=== PATIENT | male | born 1970 | race American Indian/Alaskan Native ===

== ENCOUNTER 2018-12-25 10:12 | Emergency (ER) | payer SELFPAY ==
--- NOTE | 2018-12-25 10:52 | Emergency Department Report ---
ED N/V/D HPI - General Chief complaint: Abdominal Pain Stated complaint: N/V Time Seen by Provider: 12/25/18 10:39 Source: patient, family Mode of arrival: Ambulatory Limitations: No Limitations - History of Present Illness Initial comments: 47-year-old male presents to ED with complaint of nausea, vomiting, diarrhea since 3 days. Denies abdominal pain. Patient reports he was admitted overnight to [facility] for same last week. Patient reports recurrence of similar symptoms approximately 3 months ago. Patient denies any past medical history. Denies tobacco or ethanol use. Reports daily marijuana use. MD complaint: nausea, vomiting, diarrhea -: days(s) (3) Description of Vomiting: bilious Description of Diarrhea: mucous Associated Abdominal Pain: No Severity: severe Consistency: constant Improves with: other (hot shower) Worsens with: none Associated Symptoms: denies: fever/chills - Related Data Previous Rx's Medication Instructions Recorded Last Taken Type Dicyclomine [Bentyl] 20 mg PO QID PRN #20 tablet 12/25/18 Unknown Rx Promethazine [Phenergan TAB] 25 mg PO Q6HR PRN #20 tab 12/25/18 Unknown Rx Allergies Allergy/AdvReac Type Severity Reaction Status Date / Time heparin AdvReac Unknown Verified 12/25/18 10:38 Latex, Natural Rubber AdvReac Hives Verified 12/25/18 10:38 Penicillins AdvReac Hives Verified 12/25/18 10:38 Sulfa (Sulfonamide AdvReac Hives Verified 12/25/18 10:38 Antibiotics) coumadin AdvReac Bleeding Uncoded 12/25/18 10:38 ED Review of Systems ROS: Stated complaint: N/V Other details as noted in HPI Comment: All other systems reviewed and negative Constitutional: denies: chills, fever Gastrointestinal: nausea, vomiting, diarrhea. denies: abdominal pain ED Past Medical Hx - Past Medical History Previous Medical History?: Yes Hx Deep Vein Thrombosis: Yes Additional medical history: PE hx, chronic lymphodema - Social History Smoking Status: Current Every Day Smoker Substance Use Type: Marijuana - Medications Home Medications: Home Medications Medication Instructions Recorded Confirmed Last Taken Type Dicyclomine [Bentyl] 20 mg PO QID PRN #20 tablet 12/25/18 Unknown Rx Promethazine [Phenergan TAB] 25 mg PO Q6HR PRN #20 tab 12/25/18 Unknown Rx ED Physical Exam - General Limitations: No Limitations General appearance: alert - Head Head exam: Present: atraumatic, normocephalic - Eye Eye exam: Present: normal appearance - ENT ENT exam: Present: mucous membranes moist - Neck Neck exam: Present: normal inspection - Respiratory Respiratory exam: Present: normal lung sounds bilaterally. Absent: respiratory distress - Cardiovascular Cardiovascular Exam: Present: regular rate, normal rhythm - GI/Abdominal GI/Abdominal exam: Present: soft, other (pt is actively vomiting). Absent: distended, tenderness - Extremities Exam Extremities exam: Present: other (lymphedema present) - Neurological Exam Neurological exam: Present: alert, oriented X3 - Psychiatric Psychiatric exam: Present: normal affect, normal mood - Skin Skin exam: Present: warm, dry, intact, normal color. Absent: rash ED Course Vital Signs 12/25/18 12/25/18 12/25/18 10:16 10:38 13:11 Temperature 97.5 F L 97.6 F Pulse Rate 72 82 Respiratory 22 20 18 Rate Blood Pressure 113/90 Blood Pressure 169/90 [Right] O2 Sat by Pulse 98 Oximetry - Reevaluation(s) Reevaluation #1: 12/25/18 12:47 Pt feeling much better at this time. Feels ok for discharge home. No further emesis following haldol and benadryl ED Medical Decision Making - Lab Data Result diagrams: 12/25/18 12:21 12/25/18 11:50 - Medical Decision Making - N/V x 3 days, admitted and discharged from [facility] for same a few days ago - vitals normal - labs normal - pt reports daily marijuana use, likely cannabinoid hyperemesis syndrome, states improvement of sx's w/ hot shower - IM haldol given, symptoms resolved, pt does require admission at this time - spoke w/ pt regarding marijuana cessation - return precautions given - rx given for phenergan, bentyl - Differential Diagnosis dehydration, ARF, hypokalemia, pancreatitis Critical care attestation.: If time is entered above; I have spent that time in minutes in the direct care of this critically ill patient, excluding procedure time. ED Disposition Clinical Impression: Cannabinoid hyperemesis syndrome Disposition: DC-01 TO HOME OR SELFCARE Is pt being admited?: No Condition: Stable Instructions: Acute Nausea and Vomiting (ED) Prescriptions: Dicyclomine [Bentyl] 20 mg PO QID PRN #20 tablet PRN Reason: abdominal pain Promethazine [Phenergan TAB] 25 mg PO Q6HR PRN #20 tab PRN Reason: Nausea Referrals: CONRADO MCGRAW MD [Primary Care Provider] - 3-5 Days Time of Disposition: 12:49
[2018-12-25] MEDS ORDERED: HALDOL IM ONE (10:53)
[2018-12-25] MEDS ORDERED: BENADRYL IV ONE (10:55)
[2018-12-25 12:34] LABS: Albumin 4.3 g/dL (3.9-5); BUN/Creatinine Ratio 14; Blood Urea Nitrogen 13 mg/dL (9-20); Hemolysis Index 170
[2018-12-25 12:38] LABS: Alanine Aminotransferase 24 units/L (7-56)
[2018-12-25 12:39] LABS: Basophils % (Auto) 0.8 % (0.0-1.8); Eosinophils % (Auto) 0.1 % (0.0-4.3); Hematocrit 43.1 % (35.5-45.6); Hemoglobin 14.9 gm/dl (11.8-15.2); Lymphocytes # (Auto) 0.6 K/mm3 (1.2-5.4); Lymphocytes % (Auto) 11.4 % (13.4-35.0); Mean Corpuscular HGB Conc 35 % (32-34); Mean Corpuscular Volume 86 fl (84-94); Monocytes # (Auto) 0.3 K/mm3 (0.0-0.8); Monocytes % (Auto) 4.8 % (0.0-7.3); Platelet Count 209 K/mm3 (140-440); Red Blood Count 5.02 M/mm3 (3.65-5.03); Red Cell Distribution Width 15.1 % (13.2-15.2)
[2018-12-25 13:12] VITALS: BP 169/90
== END 2018-12-25 13:11 | disposition home or self-care (01) ==
LOC: ED 10:12
DX: F12.188 Cannabis abuse with other cannabis-induced disorder (principal); F17.200 Nicotine dependence, unspecified, uncomplicated; Z88.6 Allergy status to analgesic agent; Z88.0 Allergy status to penicillin; Z88.2 Allergy status to sulfonamides; Z91.040 Latex allergy status; Z86.718 Personal history of other venous thrombosis and embolism; Z86.711 Personal history of pulmonary embolism
CPT/HCPCS: 36415; 80053; 83690; 85025; 96372; 96374; 99283; J1200; J1630

== ENCOUNTER 2019-01-25 15:57 | Inpatient (IN) | payer SELFPAY ==
--- NOTE | 2019-01-25 16:30 | Emergency Department Report ---
Blank Doc - Documentation Documentation: This is a 48-year-old male that presents with abdominal pain and n/v. This initial assessment/diagnostic orders/clinical plan/treatment(s) is/are subject to change based on patient's health status, clinical progression and re- assessment by fellow clinical providers in the ED. Further treatment and workup at subsequent clinical providers discretion. Patient/guardians urged not to elope from the ED as their condition may be serious if not clinically assessed and managed. Initial orders include: 1- Patient sent to [facility] for further evaluation and treatment 2- labs
[2019-01-25 19:37] LABS: Basophils # (Auto) 0.1 K/mm3 (0.0-0.1); Basophils % (Auto) 1.2 % (0.0-1.8); Eosinophils % (Auto) 0.8 % (0.0-4.3); Hematocrit 41.9 % (35.5-45.6); Hemoglobin 14.1 gm/dl (11.8-15.2); Lymphocytes # (Auto) 1.5 K/mm3 (1.2-5.4); Lymphocytes % (Auto) 26.7 % (13.4-35.0); Mean Corpuscular HGB Conc 34 % (32-34); Mean Corpuscular Volume 88 fl (84-94); Monocytes # (Auto) 0.3 K/mm3 (0.0-0.8); Monocytes % (Auto) 6.1 % (0.0-7.3); Platelet Count 241 K/mm3 (140-440); Red Blood Count 4.77 M/mm3 (3.65-5.03); Red Cell Distribution Width 14.7 % (13.2-15.2)
[2019-01-25 20:00] LABS: Alanine Aminotransferase 32 units/L (7-56); Albumin 3.9 g/dL (3.9-5); BUN/Creatinine Ratio 11; Blood Urea Nitrogen 11 mg/dL (9-20); Calcium 9.1 mg/dL (8.4-10.2); Hemolysis Index 23
[2019-01-25 20:06] LABS: Bilirubin,Direct < 0.2 mg/dL (0-0.2)
--- NOTE | 2019-01-25 21:19 | Emergency Department Report ---
ED Abdominal Pain HPI - General Chief Complaint: Nausea/Vomiting/Diarrhea Stated Complaint: VOMITING/ABD PAIN/HYPERTENSION Time Seen by Provider: 01/25/19 18:10 Source: patient Mode of arrival: Ambulatory Limitations: No Limitations - History of Present Illness Initial Comments: Patient is a 48-year-old male that presented some unsure what complaints of abdominal pain nausea and vomiting and GI bleed. Patient states his symptoms started 2 days ago except for his abdominal pain which started 4 weeks ago. Patient states she's having bright red blood per rectum. Patient states she was in [place] yesterday and left AMA because he felt like the staff was rude. Patient states he was admitted to the hospitalist service at [place] and the GI specialist is coming to see him for a endoscopy. Patient states he had a CT done and there were all negative. Patient states that the symptoms worsened which is why he came to this hospital. Patient states he's had abdominal pain for 1 month. Patient states his abdominal pain is in the epigastric region. Patient states abdominal pain is worse with eating and vomiting and better with rest. Patient states the abdominal pain as a 10 out of 10. Patient is complaining of nausea and vomiting which is intermittent. Patient states that the blood in his stool is worsening. Patient states he is supposed to be on blood thinners for a DVT and a PE but is not taking them. Patient states not taking any medications due to he can't afford them. Patient states he was on Lovenox shots. Patient states it's been many months since he is taking any of his medications. She denies chest pain. Patient denies shortness of breath. Patient denies fever and chills. MD Complaint: abdominal pain -: Sudden Location: epigastric Radiation: none Migration to: no migration Severity: severe Severity scale (0 -10): 10 Quality: cramping, stabbing Consistency: constant Improves With: rest Worsens With: eating, vomiting, movement Associated Symptoms: nausea, vomiting, diarrhea, hematochezia. denies: fever, chills, constipation, dysuria, hematemesis, melena, hematuria, anorexia, syncope - Related Data Previous Rx's Medication Instructions Recorded Last Taken Type Dicyclomine [Bentyl] 20 mg PO QID PRN #20 tablet 12/25/18 Unknown Rx Promethazine [Phenergan TAB] 25 mg PO Q6HR PRN #20 tab 12/25/18 Unknown Rx Allergies Allergy/AdvReac Type Severity Reaction Status Date / Time heparin AdvReac Unknown Verified 12/25/18 10:38 Latex, Natural Rubber AdvReac Hives Verified 12/25/18 10:38 Penicillins AdvReac Hives Verified 12/25/18 10:38 Sulfa (Sulfonamide AdvReac Hives Verified 12/25/18 10:38 Antibiotics) coumadin AdvReac Bleeding Uncoded 12/25/18 10:38 ED Review of Systems ROS: Stated complaint: VOMITING/ABD PAIN/HYPERTENSION Other details as noted in HPI Constitutional: denies: chills, fever Eyes: denies: eye pain, eye discharge, vision change ENT: denies: ear pain, throat pain Respiratory: denies: cough, shortness of breath, wheezing Cardiovascular: denies: chest pain, palpitations Endocrine: no symptoms reported Gastrointestinal: abdominal pain, nausea, vomiting, diarrhea, hematochezia Genitourinary: denies: urgency, dysuria Musculoskeletal: denies: back pain, joint swelling, arthralgia Skin: denies: rash, lesions Neurological: denies: headache, weakness, paresthesias Psychiatric: denies: anxiety, depression Hematological/Lymphatic: denies: easy bleeding, easy bruising ED Past Medical Hx - Past Medical History Previous Medical History?: Yes Hx Hypertension: Yes Hx Deep Vein Thrombosis: Yes Hx Pulmonary Embolism: Yes Additional medical history: DVT/PE hx, chronic lymphodema - Surgical History Past Surgical History?: Yes Additional Surgical History: IVC filter - Family History Family history: no significant - Social History Smoking Status: Never Smoker Substance Use Type: Alcohol - Medications Home Medications: Home Medications Medication Instructions Recorded Confirmed Last Taken Type Dicyclomine [Bentyl] 20 mg PO QID PRN #20 tablet 12/25/18 Unknown Rx Promethazine [Phenergan TAB] 25 mg PO Q6HR PRN #20 tab 12/25/18 Unknown Rx ED Physical Exam - General Limitations: No Limitations General appearance: alert, in no apparent distress - Head Head exam: Present: atraumatic, normocephalic - Eye Eye exam: Present: normal appearance - ENT ENT exam: Present: mucous membranes moist - Neck Neck exam: Present: normal inspection - Respiratory Respiratory exam: Present: normal lung sounds bilaterally. Absent: respiratory distress - Cardiovascular Cardiovascular Exam: Present: regular rate, normal rhythm. Absent: systolic murmur, diastolic murmur, rubs, gallop - GI/Abdominal GI/Abdominal exam: Present: soft, tenderness (generalized tenderness), normal bowel sounds. Absent: distended - Rectal Rectal exam: Present: normal rectal tone, heme (+) stool, bloody stool, hemorrhoids - Extremities Exam Extremities exam: Present: normal inspection - Back Exam Back exam: Present: normal inspection - Neurological Exam Neurological exam: Present: alert, oriented X3 - Psychiatric Psychiatric exam: Present: normal affect, normal mood - Skin Skin exam: Present: warm, dry, intact, normal color. Absent: rash ED Course Vital Signs 01/25/19 01/25/19 01/25/19 16:29 21:56 22:00 Temperature 97.7 F Pulse Rate 78 Respiratory 18 Rate Blood Pressure 160/92 154/95 152/89 01/25/19 01/26/19 23:00 00:31 Temperature Pulse Rate Respiratory Rate Blood Pressure 146/89 142/85 - Reevaluation(s) Reevaluation #1: Discussed all results with patient. Patient is complaining of nausea and abdominal pain again. Patient will be given another round of Zofran and Dilaudid. Discussed plan of care with patient. Patient agrees with plan of care and admission. Patient will be admitted to the hospitalist service. 01/26/19 01:13 - Consultations Consultation #1: Discussed case with GI, Dr. Chow. GI recommends admission and will scope him in the morning. Patient will be nothing by mouth after midnight 01/25/19 23:21 Consultation #2: Hospitalist consulted for admission. Hospitalist to admit patient. Hospitalist to assume care patient. Dr. Banegas to see patient 01/26/19 01:14 ED Medical Decision Making - Lab Data Result diagrams: 01/25/19 19:25 01/25/19 19:25 - Radiology Data Radiology results: report reviewed PROCEDURE: CT abdomen and pelvis without contrast. TECHNIQUE: Computerized axial tomography of the abdomen and pelvis was performed without intravenous contrast. This study is performed without intravascular contrast material and its sensitivity for abdominal and pelvic pathology, including neoplasms, inflammation, abscess, free fluid, thrombosis, arterial dissection and infarction, is reduced compared with a contrast enhanced study. CT DOSE LENGTH PRODUCT: 1019.3 mGycm HISTORY: Abdominal pain. COMPARISONS: None. FINDINGS: The lung bases are clear. There are no pleural effusions. The heart size is normal. The liver, pancreas and spleen are grossly normal. The gallbladder is present. There is no biliary dilatation. The adrenal glands are not enlarged. Both kidneys appear normal in size and configuration. The abdominal aorta has a normal caliber. There is an IVC filter in place. There is no retroperitoneal adenopathy. The gastrointestinal tract is unremarkable. A normal appendix is visible. The bladder, seminal vesicles and prostate appear normal. The regional skeleton appears intact. 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 IMPRESSION: IVC filter in place. 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 No evidence of acute disease in the abdomen or pelvis. - Medical Decision Making Patient is a 48-year-old male that presents emergency room with complaints of nausea vomiting diarrhea 2 days and worsening abdominal pain has been going on for a month. Patient was admitted to the hospitalist service. Patient has CT which is negative. GI consulted for rectal bleeding. Due to the patient's complex past medical history GI recommends admission to the hospitalist service and a scope in the morning. Patient nothing by mouth after midnight. Patient g iven pain medications and nausea medication. Patient's labs unremarkable. No anemia noted. Guaiac was positive - Differential Diagnosis abdominal pain.n/v/d. Rectal bleed Critical Care Time: Yes Critical care attestation.: If time is entered above; I have spent that time in minutes in the direct care of this critically ill patient, excluding procedure time. Critical Care Time: 35 minutes ED Disposition Clinical Impression: Rectal bleeding, Noncompliance Abdominal pain Qualifiers: Abdominal location: epigastric Qualified Code(s): R10.13 - Epigastric pain Disposition: OP ADMIT IP TO THIS HOSP Is pt being admited?: Yes Does the pt Need Aspirin: No Condition: Critical Referrals: CONRADO MCGRAW MD [Primary Care Provider] - 3-5 Days Time of Disposition: 01:16
[2019-01-25 22:09] LABS: Bacteria,Urine 1+ /HPF (Negative); Bilirubin,Urine NEG (Negative); Blood,Urine NEG (Negative); Color,Urine Amber (Yellow); Mucus,Urine 2+ /HPF
[2019-01-25] MEDS ORDERED: DILAUDID IV ONE (22:19)
[2019-01-25] MEDS ORDERED: ZOFRAN IV ONE (22:20)
--- NOTE | 2019-01-26 00:17 | Cat Scan Report ---
PROCEDURE: CT abdomen and pelvis without contrast. TECHNIQUE: Computerized axial tomography of the abdomen and pelvis was performed without intravenous contrast. This study is performed without intravascular contrast material and its sensitivity for ab dominal and pelvic pathology, including neoplasms, inflammation, abscess, free fluid, thrombosis, art erial dissection and infarction, is reduced compared with a contrast enhanced study. CT DOSE LENGTH PRODUCT: 1019.3 mGycm HISTORY: Abdominal pain. COMPARISONS: None. FINDINGS: The lung bases are clear. There are no pleural effusions. The heart size is normal. The liver, pancre as and spleen are grossly normal. The gallbladder is present. There is no biliary dilatation. The adr enal glands are not enlarged. Both kidneys appear normal in size and configuration. The abdominal aor ta has a normal caliber. There is an IVC filter in place. There is no retroperitoneal adenopathy. The gastrointestinal tract is unremarkable. A normal appendix is visible. The bladder, seminal vesicles and prostate appear normal. The regional skeleton appears intact. There is osteoarthritis involving t he facet joints in the lower lumbar spine. IMPRESSION: IVC filter in place. 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 No evidence of acu te disease in the abdomen or pelvis. This document is electronically signed by Wilfrido Valdez MD., Jan 26 2019 12:15:43 AM ET
[2019-01-26] MEDS ORDERED: NACL 0.9% 1000 ML 1,000 ML IV ONE (01:15)
[2019-01-26] MEDS ORDERED: DILAUDID IV ONE (01:15)
[2019-01-26] MEDS ORDERED: ZOFRAN IV ONE (01:15)
[2019-01-26] MEDS ORDERED: TYLENOL PO PRN (02:42)
[2019-01-26] MEDS ORDERED: SODIUM CHLORIDE FLUSH SYRINGE 10 ML IV PRN (02:42)
[2019-01-26] MEDS ORDERED: NACL 0.9% 1000 ML 1,000 ML IV SCH (03:00)
[2019-01-26] MEDS: NS/KCL 20MEQ 20 MEQ/1,000 ML BAG IV SCH ×2 (03:48→23:20)
[2019-01-26] MEDS: MORPHINE IV PRN ×4 (03:52→23:29)
[2019-01-26 04:03] LABS: Hematocrit 41.6 % (35.5-45.6); Hemoglobin 13.7 gm/dl (11.8-15.2)
--- NOTE | 2019-01-26 04:33 | History and Physical Report ---
History of Present Illness Date of examination: 01/26/19 Date of admission: 01/26/19 02:42 Chief complaint: Upper abdominal pain History of present illness: Patient is a 48-year-old -[place] male with history of DVTs/PEs and lymphedema who presented to the ED on account of 4 weeks history of upper abdominal pain. He described it as sharp in character, rated 8/10, constant in duration and radiating to the flank. Pain is worse with food and no known reli eving factors. He has associated nausea with vomiting, passage of dark tarry stool, headaches, shortness of breath, palpitation and lightheadedness. He denied chest pain, fever, chills, sore throat, runny nose/congestion, orthopnea or PND. No syncope or loss of consciousness. No dysuria or frequency. Of note, patient stated that he has not taken his Lovenox for about 2-3 weeks because he could not afford it. Past History Past Medical History: hypertension, pulmonary embolism (and DVTs), other (lymphedema, hemorrhoid) Past Surgical History: Other (IVC filter placement, hemorrhoidectomy, facial surgeries) Social history: smoking (patient has been smoking cigarettes and using marijuana for 30 years. He admits to occasional alcohol use but denies other illicit drug use) Family history: other (significant for clots and lymphedema in multiple family members) Medications and Allergies Allergies Allergy/AdvReac Type Severity Reaction Status Date / Time heparin AdvReac Unknown Verified 12/25/18 10:38 Latex, Natural Rubber AdvReac Hives Verified 12/25/18 10:38 Penicillins AdvReac Hives Verified 12/25/18 10:38 Sulfa (Sulfonamide AdvReac Hives Verified 12/25/18 10:38 Antibiotics) coumadin AdvReac Bleeding Uncoded 12/25/18 10:38 Home Medications Medication Instructions Recorded Confirmed Last Taken Type Dicyclomine [Bentyl] 20 mg PO QID PRN #20 tablet 12/25/18 Unknown Rx Promethazine [Phenergan TAB] 25 mg PO Q6HR PRN #20 tab 12/25/18 Unknown Rx Active Meds: Active Medications Acetaminophen (Tylenol) 650 mg PO Q4H PRN PRN Reason: Pain MILD(1-3)/Fever >100.5/CARLIN Potassium Chloride/Sodium Chloride (Ns/Kcl 20meq) 20 meq in 1,000 mls @ 75 mls/hr IV DIRECT DEE Stop: 01/27/19 02:59 Last Admin: 01/26/19 03:48 Dose: 75 mls/hr Documented by: Morphine Sulfate (Morphine) 2 mg IV Q4H PRN PRN Reason: Pain, Moderate (4-6) Last Admin: 01/26/19 03:52 Dose: 2 mg Documented by: Ondansetron HCl (Zofran) 4 mg IV Q8H PRN PRN Reason: Nausea And Vomiting Pantoprazole Sodium (Protonix) 40 mg IV QDAY DEE Sodium Chloride (Sodium Chloride Flush Syringe 10 Ml) 10 ml IV BID DEE Sodium Chloride (Sodium Chloride Flush Syringe 10 Ml) 10 ml IV PRN PRN PRN Reason: LINE FLUSH Review of Systems All systems: negative (except as documented in the HPI, all other systems were reviewed and negative) Exam - Constitutional Vitals: Temp Pulse Resp BP Pulse Ox 97.7 F 57 L 13 154/96 97 01/25/19 16:29 01/26/19 04:01 01/26/19 04:01 01/26/19 04:01 01/26/19 04:01 General appearance: Present: no acute distress, well-nourished - EENT Eyes: Present: PERRL, EOM intact ENT: hearing intact, clear oral mucosa - Neck Neck: Present: supple, normal ROM - Respiratory Respiratory effort: normal Respiratory: bilateral: CTA - Cardiovascular Rhythm: regular Heart Sounds: Present: S1 & S2. Absent: rub, click - Extremities Extremities: No edema Peripheral Pulses: within normal limits - Abdominal General gastrointestinal: Present: soft, tender (epigastric), non-distended, normal bowel sounds Male genitourinary: Present: deferred - Integumentary Integumentary: Present: clear, warm, dry - Musculoskeletal Musculoskeletal: gait normal, strength equal bilaterally - Psychiatric Psychiatric: appropriate mood/affect, intact judgment & insight - Neurologic Neurologic: CNII-XII intact, moves all extremities Results - Labs CBC & Chem 7: 01/26/19 03:30 01/25/19 19:25 Labs: Laboratory Last Values WBC 5.6 K/mm3 (4.5-11.0) 01/25/19 19:25 RBC 4.77 M/mm3 (3.65-5.03) 01/25/19 19:25 Hgb 13.7 gm/dl (11.8-15.2) 01/26/19 03:30 Hct 41.6 % (35.5-45.6) 01/26/19 03:30 MCV 88 fl (84-94) 01/25/19 19:25 MCH 30 pg (28-32) 01/25/19 19:25 MCHC 34 % (32-34) 01/25/19 19:25 RDW 14.7 % (13.2-15.2) 01/25/19 19:25 Plt Count 241 K/mm3 (140-440) 01/25/19 19:25 Lymph % (Auto) 26.7 % (13.4-35.0) 01/25/19:25 [place] % (Auto) 6.1 % (0.0-7.3) 01/25/19 19:25 Eos % (Auto) 0.8 % (0.0-4.3) 01/25/19 19:25 Baso % (Auto) 1.2 % (0.0-1.8) 01/25/19 19:25 Lymph # 1.5 K/mm3 (1.2-5.4) 01/25/19:25 [place] # 0.3 K/mm3 (0.0-0.8) 01/25/19 19:25 Eos # 0.0 K/mm3 (0.0-0.4) 01/25/19 19:25 Baso # 0.1 K/mm3 (0.0-0.1) 01/25/19 19:25 Seg Neutrophils % 65.2 % (40.0-70.0) 01/25/19 19: Seg Neutrophils # 3.7 K/mm3 (1.8-7.7) 01/25/19 19:25 Sodium 139 mmol/L (137-145) 01/25/19 19:25 Potassium 3.6 mmol/L (3.6-5.0) 01/25/19 19:25 Chloride 102.9 mmol/L (98-107) 01/25/19 19:25 Carbon Dioxide 23 mmol/L (22-30) 01/25/19 19:25 Anion Gap 17 mmol/L 01/25/19 19:25 BUN 11 mg/dL (9-20) 01/25/19 19:25 Creatinine 1.0 mg/dL (0.8-1.5) 01/25/19 19:25 Estimated GFR > 60 ml/min 01/25/19 19:25 BUN/Creatinine Ratio 11 % 01/25/19 19:25 Glucose 92 mg/dL (75-100) 01/25/19 19:25 Calcium 9.1 mg/dL (8.4-10.2) 01/25/19 19:25 Total Bilirubin 0.60 mg/dL (0.1-1.2) 01/25/19 19:25 Direct Bilirubin < 0.2 mg/dL (0-0.2) 01/25/19 19:25 AST 21 units/L (5-40) 01/25/19 19:25 ALT 32 units/L (7-56) 01/25/19 19:25 Alkaline Phosphatase 145 units/L (35-129) H 01/25/19 19:25 Total Protein 7.2 g/dL (6.3-8.2) 01/25/19 19:25 Albumin 3.9 g/dL (3.9-5) 01/25/19 19:25 Albumin/Globulin Ratio 1.2 % 01/25/19 19:25 Lipase 44 units/L (13-60) 01/25/19 23:28 Urine Color [place] (Yellow) 01/25/19 21:50 Urine Turbidity Slightly-cloudy (Clear) 01/25/19 21:50 Urine pH 5.0 (5.0-7.0) 01/25/19 21:50 Ur Specific [place] 1.030 (1.003-1.030) 01/25/19 21:50 Urine Protein 30 mg/dl mg/dL (Negative) 01/25/19 21:50 Urine Glucose (UA) Neg mg/dL (Negative) 01/25/19 21:50 Urine Ketones Neg mg/dL (Negative) 01/25/19 21:50 Urine Blood Neg (Negative) 01/25/19 21:50 Urine Nitrite Neg (Negative) 01/25/19 21:50 Urine Bilirubin Neg (Negative) 01/25/19 21:50 Urine Urobilinogen 4.0 mg/dL (<2.0) 01/25/19 21:50 Ur Leukocyte Esterase Neg (Negative) 01/25/19 21:50 Urine WBC (Auto) 3.0 /HPF (0.0-6.0) 01/25/19 21:50 Urine RBC (Auto) 7.0 /HPF (0.0-6.0) 01/25/19 21:50 U Epithel Cells (Auto) 1.0 /HPF (0-13.0) 01/25/19 21:50 Urine Bacteria (Auto) 1+ /HPF (Negative) 01/25/19 21:50 Urine Mucus 2+ /HPF 01/25/19 21:50 Assessment and Plan Assessment and plan: Rectal bleed -On IV Protonix -H/H stable, will monitor and transfuse as needed -Patient scheduled for EGD today -GI consulted Epigastric abdominal pain -On when necessary narcotics -CT abdomen/pelvis negative for acute findings -Further investigative testing with EGD History of DVTs/PEs -Status post IVC filter placement -Patient is currently on only Lovenox because he is unable to tolerate other anticoagulations -We'll hold due to acute bleed Hypertension -Stable, will resume home antihypertensives History of lymphedema Tobacco and marijuana abuse -Patient counseled on cessation DVT prophylaxis with [facility] Disposition: For discharge when medically stable Time spent: 38 minutes
[2019-01-26] MEDS: ZOFRAN IV PRN ×2 (06:56→19:25)
[2019-01-26] MEDS: PROTONIX IV SCH (09:23)
[2019-01-26] MEDS: SODIUM CHLORIDE FLUSH SYRINGE 10 ML IV SCH ×2 (09:23→22:00)
[2019-01-26 09:58] LABS: Hemoglobin 13.6 gm/dl (11.8-15.2)
[2019-01-26] MEDS ORDERED: PROTONIX IV SCH (10:00)
--- NOTE | 2019-01-26 10:51 | Gastroenterology Consultation ---
<VICTORINO LEOS - Last Filed: 01/26/19 11:04> History of Present Illness - Reason for Consult Consult date: 01/26/19 GI bleed Requesting physician: ISAIAH RODRIGUEZ III - History of Present Illness Patient is a 48 y/o male with PMH of DVTs/PEs (s/p IVC filter placement; non- compliant with taking lovenox due to cost), lymephedema, hemorrhoids (s/p hemorrhoidectomy), and substance abuse (tobacco/marijuana) who presented to ED for evaluation of epigastric abd pain, N/V, and bright red blood per rectum after leaving [facility] because he felt like the staff was rude. upon admission, abd CT was negative for acute findings. H/H WNL. This morning patient was resting in bed w/o acute distress (on his cell phone with family at bedside). He reports having indigestion/belching x 3 months and epigastric pain with intermittent N/V x 1 month. Pain does not radiate. Symptoms are exacerbated with eating and alcohol consumption. Admits to recent associated wt loss due to current symptoms but denies fever, CP, SOB, hematemesis, melena, diarrhea, or constipation. States he saw bright red blood mixed with brown stool and in toilet 2 days ago after a BM but no active signs of bleeding since that time. He has had occasional rectal bleeding since hemorrhoidectomy (~2014). No known colonoscopy or prior EGD per pt. No NSAID use (was previously on daily ASA while in nursing home but stopped taking last year upon release) or hx of PUD. No Fhx of GI cancers. Past History Past Medical History: other (as per HPI) Past Surgical History: Other (IVC filter placement, hemorrhoidectomy, facial surgeries) Social history: smoking (patient has been smoking cigarettes and using marijuana for 30 years. He admits to occasional alcohol use but denies other illicit drug use) Family history: other (significant for clots and lymphedema in multiple family members) Medications and Allergies Allergies Allergy/AdvReac Type Severity Reaction Status Date / Time heparin AdvReac Unknown Verified 12/25/18 10:38 Latex, Natural Rubber AdvReac Hives Verified 12/25/18 10:38 Penicillins AdvReac Hives Verified 12/25/18 10:38 Sulfa (Sulfonamide AdvReac Hives Verified 12/25/18 10:38 Antibiotics) coumadin AdvReac Bleeding Uncoded 12/25/18 10:38 Home Medications Medication Instructions Recorded Confirmed Last Taken Type Dicyclomine [Bentyl] 20 mg PO QID PRN #20 tablet 12/25/18 Unknown Rx Promethazine [Phenergan TAB] 25 mg PO Q6HR PRN #20 tab 12/25/18 Unknown Rx Active Meds: Active Medications Acetaminophen (Tylenol) 650 mg PO Q4H PRN PRN Reason: Pain MILD(1-3)/Fever >100.5/CARLIN Potassium Chloride/Sodium Chloride (Ns/Kcl 20meq) 20 meq in 1,000 mls @ 75 mls/hr IV DIRECT FOR[facility], [facility]1983 Stop: 01/27/19 02:59 Last Admin: 01/26/19 03:48 Dose: 75 mls/hr Documented by: Morphine Sulfate (Morphine) 2 mg IV Q4H PRN PRN Reason: Pain, Moderate (4-6) Last Admin: 01/26/19 07:48 Dose: 2 mg Documented by: Ondansetron HCl (Zofran) 4 mg IV Q8H PRN PRN Reason: Nausea And Vomiting Last Admin: 01/26/19 06:56 Dose: 4 mg Documented by: Pantoprazole Sodium (Protonix) 40 mg IV QDAY [facility], [facility] Last Admin: 01/26/19 09:23 Dose: 40 mg Documented by: Sodium Chloride (Sodium Chloride Flush Syringe 10 Ml) 10 ml IV BID [facility], [facility] Last Admin: 01/26/19 09:23 Dose: 10 ml Documented by: Sodium Chloride (Sodium Chloride Flush Syringe 10 Ml) 10 ml IV PRN PRN PRN Reason: LINE FLUSH medications reviewed/updated as required Review of Systems - Review of Systems All systems: negative Gastrointestinal: abdominal pain (epigastric), nausea, vomiting, BRBPR Exam - Constitutional Vital Signs: Temp Pulse Resp BP Pulse Ox 97.7 F 57 L 13 154/96 97 01/25/19 16:29 01/26/19 04:01 01/26/19 04:01 01/26/19 04:01 01/26/19 04:01 General appearance: no acute distress - EENT Eyes: PERRL, EOM intact ENT: hearing intact - Respiratory Respiratory: bilateral: CTA - Cardiovascular Rhythm: regular - Gastrointestinal General gastrointestinal: Present: soft, tender (slight TTP in epigastric area), non-distended, normal bowel sounds - Neurologic Neurological: alert and oriented x3 - Labs CBC & Chem 7: 01/26/19 09:49 01/25/19 19:25 Lab Results: Laboratory Results - last 24 hr 01/25/19 01/25/19 01/25/19 19:25 19:25 21:50 WBC 5.6 RBC 4.77 Hgb 14.1 Hct 41.9 MCV 88 MCH 30 MCHC 34 RDW 14.7 Plt Count 241 Lymph % (Auto) 26.7 [place] % (Auto) 6.1 Eos % (Auto) 0.8 Baso % (Auto) 1.2 Lymph # 1.5 [place] # 0.3 Eos # 0.0 Baso # 0.1 Seg Neutrophils % 65.2 Seg Neutrophils # 3.7 Sodium 139 Potassium 3.6 Chloride 102.9 Carbon Dioxide 23 Anion Gap 17 BUN 11 Creatinine 1.0 Estimated GFR > 60 BUN/Creatinine Ratio 11 Glucose 92 Calcium 9.1 Total Bilirubin 0.60 Direct Bilirubin < 0.2 AST 21 ALT 32 Alkaline Phosphatase 145 H Total Protein 7.2 Albumin 3.9 Albumin/Globulin Ratio 1.2 Lipase 28 Urine Color Sheila Urine Turbidity Slightly-cloudy Urine pH 5.0 Ur Specific [place] 1.030 Urine Protein 30 mg/dl Urine Glucose (UA) Neg Urine Ketones Neg Urine Blood Neg Urine Nitrite Neg Urine Bilirubin Neg Urine Urobilinogen 4.0 Ur Leukocyte Esterase Neg Urine WBC (Auto) 3.0 Urine RBC (Auto) 7.0 U Epithel Cells (Auto) 1.0 Urine Bacteria (Auto) 1+ Urine Mucus 2+ 01/25/19 01/26/19 01/26/19 23:28 03:30 09:49 WBC RBC Hgb 13.7 13.6 Hct 41.6 41.0 MCV MCH MCHC RDW Plt Count Lymph % (Auto) [place] % (Auto) Eos % (Auto) Baso % (Auto) Lymph # [place] # Eos # Baso # Seg Neutrophils % Seg Neutrophils # Sodium Potassium Chloride Carbon Dioxide Anion Gap BUN Creatinine Estimated GFR BUN/Creatinine Ratio Glucose Calcium Total Bilirubin Direct Bilirubin AST ALT Alkaline Phosphatase Total Protein Albumin Albumin/Globulin Ratio Lipase 44 Urine Color Urine Turbidity Urine pH Ur Specific [place] Urine Protein Urine Glucose (UA) Urine Ketones Urine Blood Urine Nitrite Urine Bilirubin Urine Urobilinogen Ur Leukocyte Esterase Urine WBC (Auto) Urine RBC (Auto) U Epithel Cells (Auto) Urine Bacteria (Auto) Urine Mucus Assessment and Plan 1.epigastric pain 2.N/V -afebrile -WBC and lipase WNL -alk phos 145 (T.flako, AST, ALT WNL) -abd CT w/o acute findings -etiology unclear-possible peptic vs GB vs other (marijuana use) -EGD tomorrow for further evaluation -abd U/S for evaluation of GB -okay for clears today as tolerated and then NPO after MN -continue PPI -continue to trend labs and supportive care (antiemetics, etc.) 2.BRBPR 3.H/o hemorrhoidectomy -H/H WNL (13.6/41.0) -continue to monitor H/H and transfuse as needed -patient reports bright red blood mixed with brown stool and in toilet following a BM 2 days ago (had had occasional rectal bleeding since hemorrhoidectomy) -no active signs of bleeding at this time-HD stable; no melena or hematemesis -etiology-likely anorectal in origin -colonoscopy tomorrow for further evaluation (r/o other GI pathology) -continue supportive care -will follow <WILBER DHALIWAL R - Last Filed: 01/27/19 12:48> Medications and Allergies Active Meds: Active Medications Acetaminophen (Tylenol) 650 mg PO Q4H PRN PRN Reason: Pain MILD(1-3)/Fever >100.5/CARLIN Sodium Chloride (Nacl 0.9% 1000 Ml) 1,000 mls @ 50 mls/hr IV DIRECT [facility], [facility] Last Admin: 01/27/19 11:39 Dose: 50 mls/hr Documented by: Morphine Sulfate (Morphine) 2 mg IV Q4H PRN PRN Reason: Pain, Moderate (4-6) Last Admin: 01/27/19 09:27 Dose: 2 mg Documented by: Nicotine (Habitrol) 21 mg TD QDAY [facility] Last Admin: 01/27/19 09:14 Dose: 21 mg Documented by: Ondansetron HCl (Zofran) 4 mg IV Q8H PRN PRN Reason: Nausea And Vomiting Last Admin: 01/26/19 19:25 Dose: 4 mg Documented by: Pantoprazole Sodium (Protonix) 40 mg IV QDAY [facility] Last Admin: 01/27/19 09:14 Dose: 40 mg Documented by: Sodium Chloride (Sodium Chloride Flush Syringe 10 Ml) 10 ml IV BID [facility] Last Admin: 01/27/19 09:18 Dose: 10 ml Documented by: Sodium Chloride (Sodium Chloride Flush Syringe 10 Ml) 10 ml IV PRN PRN PRN Reason: LINE FLUSH Exam - Constitutional Vital Signs: Temp Pulse Resp BP Pulse Ox 97.7 F 63 11 L 143/84 98 01/27/19 11:30 01/27/19 11:30 01/27/19 11:30 01/27/19 11:30 01/27/19 11:30 - Labs CBC & Chem 7: 01/26/19 14:49 01/27/19 05:19 Lab Results: Laboratory Results - last 24 hr 01/26/19 01/27/19 01/27/19 14:49 05:19 05:19 Hgb 13.9 Hct 41.1 PT 13.8 INR 1.00 Sodium 138 Potassium 3.8 Chloride 105.7 Carbon Dioxide 23 Anion Gap 13 BUN 8 L Creatinine 0.9 Estimated GFR > 60 BUN/Creatinine Ratio 9 Glucose 92 Calcium 8.2 L Magnesium 2.00 Total Bilirubin 0.80 Direct Bilirubin < 0.2 Indirect Bilirubin 0.6 AST 17 ALT 24 Alkaline Phosphatase 114 Total Protein 6.2 L Albumin 3.1 L Albumin/Globulin Ratio 1.0 Assessment and Plan Pt seen and examined on 01/26. Plan as noted.
--- NOTE | 2019-01-26 14:11 | Event Note ---
Date: 01/26/19 Patient seen and examined admitted with GI bleed, GI following, plan for EGD tomorrow
[2019-01-26 15:09] LABS: Hematocrit 41.1 % (35.5-45.6); Hemoglobin 13.9 gm/dl (11.8-15.2)
[2019-01-26] MEDS: HABITROL TD SCH (15:48)
[2019-01-26] MEDS ORDERED: GOLYTELY PO ONE (16:00)
[2019-01-27 05:59] LABS: Blood Urea Nitrogen 8 mg/dL (9-20)
[2019-01-27 06:00] LABS: Alanine Aminotransferase 24 units/L (7-56); Albumin 3.1 g/dL (3.9-5); BUN/Creatinine Ratio 9; Calcium 8.2 mg/dL (8.4-10.2); Hemolysis Index 19
[2019-01-27 06:30] LABS: Bilirubin,Direct < 0.2 mg/dL (0-0.2)
--- NOTE | 2019-01-27 07:58 | Ultrasound Report ---
ULTRASOUND ABDOMEN INDICATION: Epigastric pain, nausea, vomiting. COMPARISON: Yesterday's CT. FINDINGS: Abdominal sonography suggests diffuse hepatic nonspecific coarsening, slightly echogenic. Grossly normal hepatic contours. No focal suspicious lesions or biliary dilatation. No shadowing gallstones, pericholecystic fluid or positive sonographic Summers's sign, though slight gallbladder sludge questioned on some images. Gallbladder wall thickness is 2.5 mm. CBD caliber is 3.5 mm. Homogenous spleen, 13.3 cm in length. No ascites. Normal imaged pancreas, aorta and IVC. Borderline/slight increased renal cortical echogenicity. No hydronephrosis. Right kidney is 11.1 x 4.9 x 5.2 cm with cortical thickness of 1.3 cm. Left kidney measures 10.3 x 5 x 5.7 cm with cortical thickness of 1.4 cm. CONCLUSION: Slightly coarse liver, possible gallbladder sludge, slight splenomegaly and subtle underlying medical renal disease sonographically without acute abdominal abnormality, as described. Please correlate. Thank you for the opportunity to participate in this patient's care.
[2019-01-27] MEDS: PROTONIX IV SCH (09:14)
[2019-01-27] MEDS: HABITROL TD SCH (09:14)
[2019-01-27] MEDS: SODIUM CHLORIDE FLUSH SYRINGE 10 ML IV SCH (09:18)
[2019-01-27] MEDS: MORPHINE IV PRN (09:27)
--- NOTE | 2019-01-27 11:31 | Anesthesia Day of Surgery ---
Anesthesia Day of Surgery - Day of Surgery Patient Examined: Yes Patient H&P Reviewed: Yes Patient is NPO: Yes Beta Blockers: No
[2019-01-27] MEDS ORDERED: WATER FOR IRRIG STERILE ONE (11:32)
--- NOTE | 2019-01-27 11:32 | Anesthesia Consultation ---
Anesthesia Consult and Med Hx Date of service: 01/27/19 - Airway Anesthetic Teeth Evaluation: Good ROM Head & Neck: Adequate Mental/Hyoid Distance: Adequate Mallampati Class: Class III Intubation Access Assessment: Good - Pulmonary Exam CTA: Yes - Cardiac Exam Cardiac Exam: No Murmur - Pre-Operative Health Status ASA Pre-Surgery Classification: ASA3 Proposed Anesthetic Plan: MAC - Pulmonary Hx Smoking: Yes Hx Asthma: Yes COPD: No Hx Pneumonia: Yes - Cardiovascular System Hx Hypertension: Yes - Central Nervous System Hx Seizures: Yes (x 1) Hx Psychiatric Problems: Yes - Endocrine Hx End Stage Renal Disease: No - Other Systems Hx Cancer: No
[2019-01-27] MEDS ORDERED: NACL 0.9% 1000 ML 1,000 ML IV SCH (12:00)
[2019-01-27] MEDS ORDERED: DIPRIVAN 10 MG/ML IV ONE ×2 (12:50)
--- NOTE | 2019-01-27 13:27 | Post Operative Note ---
Pre-op diagnosis: Dyspepsia, rectal bleeding Post-op diagnosis: other (Normal EGD, colon polyps, external hemorrhoids) Findings: 1. Normal EGD 2. 2 small TC polyps, removed with hot biopsy. 3. External hemorrhoids 4. Otherwise normal colonoscopy Procedure: EGD, and Colonoscopy with hot biopsy polypectomy Anesthesia: MAC Surgeon: WILBER DHALIWAL Estimated blood loss: none Pathology: list (1. Transverse colon polyps) Specimen disposition: to lab Condition: stable Disposition: floor (1. Advance diet. If symptoms persist, GB ultrasound.)
--- NOTE | 2019-01-27 14:03 | Operative Report ---
PROCEDURE: Upper endoscopy and colonoscopy with hot biopsy and polypectomy. PREOPERATIVE DIAGNOSIS: Epigastric pain and nausea with vomiting as well as rectal bleeding. POSTOPERATIVE DIAGNOSIS: Normal upper endoscopy and 2 transverse colon polyps and external hemorrhoids. SEDATION: MAC by Anesthesia. HISTORY: The patient is a 48-year-old man with a history of DVT in the past, who came in with complaints of one month history of epigastric pain with nausea and vomiting as well as bright red blood per rectum. His CBC and CMP are normal. Ultrasound shows maybe some sludge in the gallbladder. PROCEDURE: Indications, risks, and benefits were explained and consent was obtained. The patient was placed in left lateral decubitus position and sedated. Fuji video upper scope was passed through the mouth and oropharynx into the descending duodenum. Scope was then gradually withdrawn with close inspection of mucosa. The patient was subsequently rotated and a colonoscopy was performed. Fuji video colonoscope was passed through the rectum after digital examination and passed with minimal difficulty to the cecum, which was identified by the ileocecal valve and the appendiceal orifice. Scope was then gradually withdrawn with close inspection of the mucosa. Prep was good. FINDINGS: 1. Normal upper endoscopy with normal esophagus, stomach, and duodenum. Sharp Z-line located at 42 cm from the incisors. There is no evidence of inflammation or peptic ulcer disease or mass lesion. 2. Two small 5 mm transverse colon polyps - removed with hot biopsy forceps. 3. Moderate external hemorrhoids on retroflexion. 4. Remainder of visualized colonic mucosa was normal appearing with no evidence of mass lesions, vascular lesions or inflammation. The patient tolerated procedures well without immediate complications. IMPRESSION: 1. Normal upper endoscopy. 2. Transverse colon polyps. 3. External hemorrhoids - source of rectal blood. RECOMMENDATION: 1. Advance diet and empiric proton pump inhibitors. 2. If symptoms persist, proceed with HIDA scan with CCK. 3. Follow up biopsies. 4. If adenomatous polyps, repeat colonoscopy in 5 years. JOB# [id number] HRC/NTS
--- NOTE | 2019-01-27 14:33 | Discharge Summary ---
Providers - Providers Date of Admission: 01/26/19 02:42 Date of discharge: 01/27/19 Attending physician: YOLANDA KRUEGER 01/26/19 01:42 Consult to Physician [CONS] Routine Comment: Dr. Silva spoke with Dr. Billy @ [phone] Consulting Provider: RADHA BILLY Physician Instructions: Reason For Exam: gi bleed Primary care physician: [facility], Hospitalization Condition: Stable Procedures: Procedure: EGD, and Colonoscopy with hot biopsy polypectomy Pre-op diagnosis: Dyspepsia, rectal bleeding Post-op diagnosis: other (Normal EGD, colon polyps, external hemorrhoids) Findings: 1. Normal EGD 2. 2 small TC polyps, removed with hot biopsy. 3. External hemorrhoids 4. Otherwise normal colonoscopy Hospital course: Patient is a 48 y/o male with PMH of DVTs/PEs (s/p IVC filter placement; non- compliant with taking lovenox due to cost), lymephedema, hemorrhoids (s/p hemorrhoidectomy), and substance abuse (tobacco/marijuana) who presented to ED for evaluation of epigastric abd pain, N/V, and bright red blood per rectum after leaving [facility] because he felt like the staff was rude. upon admission, abd CT was negative for acute findings. H/H WNL. he was admitted for further evaluation and management. Discharge diagnosis and management: Rectal bleed -due to external hemorrhoids -H/H stable, -s/p EGD and colonoscopy -GI consulted and recommended outpt followup Epigastric abdominal pain - likely viral gastritis -CT abdomen/pelvis negative for acute findings -No acute finding on EGD and colonoscopy History of DVTs/PEs -Status post IVC filter placement -Patient stated he was prescribed Lovenox because he is unable to tolerate other anticoagulations -We'll hold any AC due to acute bleed - he can resume lovenox outpt Hypertension -Stable, continued home antihypertensives History of lymphedema, stable Tobacco and marijuana abuse -Patient counseled on cessation, placed on nicotine patch DVT prophylaxis with SCD Disposition: TO HOME OR SELFCARE Time spent for discharge: 34 minutes Core Measure Documentation - Palliative Care Palliative Care/ Comfort Measures: Not Applicable - Core Measures Any of the following diagnoses?: none Exam - Constitutional Vitals: Temp Pulse Resp BP Pulse Ox 97.8 F 65 16 158/98 99 05/03/19 13:27 01/27/19 13:57 01/27/19 13:57 01/27/19 13:57 01/27/19 13:57 General appearance: Present: no acute distress, well-nourished - EENT Eyes: Present: PERRL ENT: hearing intact, clear oral mucosa - Neck Neck: Present: supple, normal ROM - Respiratory Respiratory effort: normal Respiratory: bilateral: CTA - Cardiovascular Heart Sounds: Present: S1 & S2. Absent: rub, click - Extremities Extremities: pulses symmetrical, No edema Peripheral Pulses: within normal limits - Abdominal General gastrointestinal: Present: soft, non-tender, non-distended, normal bowel sounds - Integumentary Integumentary: Present: clear, warm, dry - Musculoskeletal Musculoskeletal: gait normal, strength equal bilaterally - Psychiatric Psychiatric: appropriate mood/affect, intact judgment & insight - Neurologic Neurologic: CNII-XII intact, moves all extremities Plan Activity: advance as tolerated Weight Bearing Status: Weight Bear as Tolerated Diet: low fat, low salt Follow up with: CONRADO MCGRAW MD [Primary Care Provider] - 3-5 Days WILBER DHALIWAL MD [Staff Physician] - 7 Days Forms: Work/School Release Form
[2019-01-27] MEDS: ZOFRAN IV PRN (15:12)
[2019-01-27 17:43] VITALS: BP 155/99
== END 2019-01-27 20:45 | disposition home or self-care (01) | DRG 392 ==
LOC: ED 15:57 → 3A 01-26 02:42
PROVIDERS: ADMIT Internal Medicine; ATTEND Internal Medicine
PROC: 0DJ08ZZ Inspection of Upper Intestinal Tract, Via Natural or Artificial Opening Endoscopic (ICD-10-PCS; principal; 2019-01-27)
PROC: 0DBL8ZZ Excision of Transverse Colon, Via Natural or Artificial Opening Endoscopic (ICD-10-PCS; 2019-01-27)
DX: A08.4 Viral intestinal infection, unspecified (principal); K64.4 Residual hemorrhoidal skin tags; K63.5 Polyp of colon; F17.210 Nicotine dependence, cigarettes, uncomplicated; F12.10 Cannabis abuse, uncomplicated; J45.909 Unspecified asthma, uncomplicated; I10 Essential (primary) hypertension; Z86.718 Personal history of other venous thrombosis and embolism; Z86.711 Personal history of pulmonary embolism; Z79.01 Long term (current) use of anticoagulants; Z84.89 Family history of other specified conditions; Z88.0 Allergy status to penicillin; Z88.2 Allergy status to sulfonamides; Z88.8 Allergy status to other drugs, medicaments and biological substances; Z91.040 Latex allergy status; Z95.828 Presence of other vascular implants and grafts; Z72.89 Other problems related to lifestyle; Z91.14 Patient's other noncompliance with medication regimen; Z71.6 Tobacco abuse counseling; Z71.51 Drug abuse counseling and surveillance of drug abuser
CPT/HCPCS: 36415; 74176; 76700; 80048; 80076; 81001; 83690; 83735; 85014; 85018; 85025; 85610; 87116; 88305; 96361; 96374; 96375; 96376; 99291; 99406; G0378; C9113; J1170; J2270; J2405; J2704; J7030

== ENCOUNTER 2019-02-06 09:03 | Inpatient (IN) | payer SELFPAY ==
[2019-02-06 12:27] LABS: Basophils % (Auto) 0.6 % (0.0-1.8); Eosinophils # (Auto) 0.1 K/mm3 (0.0-0.4); Eosinophils % (Auto) 2.5 % (0.0-4.3); Hemoglobin 13.5 gm/dl (11.8-15.2); Lymphocytes % (Auto) 25.1 % (13.4-35.0); Mean Corpuscular HGB Conc 34 % (32-34); Mean Corpuscular Volume 89 fl (84-94); Monocytes # (Auto) 0.3 K/mm3 (0.0-0.8); Platelet Count 242 K/mm3 (140-440); Red Blood Count 4.49 M/mm3 (3.65-5.03); Red Cell Distribution Width 14.7 % (13.2-15.2)
[2019-02-06 12:29] LABS: BUN/Creatinine Ratio 8; Blood Urea Nitrogen 7 mg/dL (9-20); Hemolysis Index 23
--- NOTE | 2019-02-06 12:45 | Emergency Department Report ---
<PIEDAD STEPHENSON - Last Filed: 02/06/19 18:54> ED Chest Pain HPI - General Chief Complaint: Dyspnea/Respdistress Stated Complaint: (R) LUNG PAIN/COUGHING Time Seen by Provider: 02/06/19 11:38 Source: patient Mode of arrival: Ambulatory Limitations: No Limitations - History of Present Illness Initial Comments: This is a 48-year-old male who presents to cough and right chest pain 2 days. Patient states that he noted x-rays shortness of breath. Patient has a previous history of pulmonary embolism and was recently hospitalized. Patient states that pain is localized to his right chest region. Patient states that he has been having intermittent productive coughing as well. He denies fever/chills/nausea vomiting/abdominal pain MD Complaint: chest pain -: Gradual Onset: during rest Pain Location: right chest Pain Radiation: none Severity: moderate Severity scale (0 -10): 6 Quality: aching, heaviness Improves With: nothing Worsens With: inspiration Context: recent illness re: dyspnea. denies: nausea, vomting Other Symptoms: cough. denies: fever - Related Data Previous Rx's Medication Instructions Recorded Last Taken Type Dicyclomine [Bentyl] 20 mg PO QID PRN #20 tablet 12/25/18 Unknown Rx Hydrocortisone [Proctosol-Hc] 10 applic RC DAILY PRN #10 01/27/19 Unknown Rx cream.appl Pantoprazole [Protonix] 40 mg PO QDAY #30 tablet 01/27/19 Unknown Rx Allergies Allergy/AdvReac Type Severity Reaction Status Date / Time heparin AdvReac Unknown Verified 12/25/18 10:38 Latex, Natural Rubber AdvReac Hives Verified 12/25/18 10:38 Penicillins AdvReac Hives Verified 12/25/18 10:38 Sulfa (Sulfonamide AdvReac Hives Verified 12/25/18 10:38 Antibiotics) coumadin AdvReac Bleeding Uncoded 12/25/18 10:38 Heart Score - HEART Score History: Slightly suspicious EKG: Normal Age: 45-65 Risk factors: 1-2 risk factors Troponin: < normal limit HEART Score: 2 ED Review of Systems Comment: All other systems reviewed and negative ED Past Medical Hx - Past Medical History Previous Medical History?: Yes Hx Hypertension: Yes Hx Congestive Heart Failure: No Hx Diabetes: No Hx Deep Vein Thrombosis: Yes Hx Pulmonary Embolism: Yes Hx Seizures: Yes (x 1) Hx Asthma: Yes Hx COPD: No Hx Tuberculosis: Yes (Treated x 9 months) Hx HIV: No Additional medical history: DVT/PE hx, chronic lymphodema - Surgical History Past Surgical History?: Yes Additional Surgical History: IVC filter - Social History Smoking Status: Current Every Day Smoker Substance Use Type: Marijuana - Medications Home Medications: Home Medications Medication Instructions Recorded Confirmed Last Taken Type Dicyclomine [Bentyl] 20 mg PO QID PRN #20 tablet 12/25/18 Unknown Rx Hydrocortisone [Proctosol-Hc] 10 applic RC DAILY PRN #10 01/27/19 Unknown Rx cream.appl Pantoprazole [Protonix] 40 mg PO QDAY #30 tablet 01/27/19 Unknown Rx ED Physical Exam - General Limitations: No Limitations General appearance: alert, in no apparent distress - Head Head exam: Present: atraumatic, normocephalic - Eye Eye exam: Present: normal appearance - ENT ENT exam: Present: mucous membranes moist - Neck Neck exam: Present: normal inspection - Respiratory Respiratory exam: Present: normal lung sounds bilaterally. Absent: respiratory distress, wheezes, chest wall tenderness, accessory muscle use - Cardiovascular Cardiovascular Exam: Present: regular rate, normal rhythm. Absent: systolic murmur, diastolic murmur, rubs, gallop - GI/Abdominal GI/Abdominal exam: Present: soft, normal bowel sounds - Rectal Rectal exam: Present: deferred - Extremities Exam Extremities exam: Present: normal inspection - Back Exam Back exam: Present: normal inspection - Neurological Exam Neurological exam: Present: alert, oriented X3 - Psychiatric Psychiatric exam: Present: normal affect, normal mood - Skin Skin exam: Present: warm, dry, intact, normal color. Absent: rash ADRIAN score - Adrian Score Age > 65: (0) No Aspirin use within the Past 7 Days: (0) No 3 or more CAD Risk Factors: (0) No 2 or more Angina events in past 24 hrs: (0) No Known CAD with more than 50% Stenosis: (0) No Elevated Cardiac Markers: (0) No ST Deviation Greater than 0.5mm: (0) No ADRIAN Score: 0 ED Medical Decision Making - Lab Data Result diagrams: 02/06/19 11:52 02/06/19 11:52 - Radiology Data Radiology results: report reviewed, image reviewed ROUTINE CHEST, TWO VIEWS: HISTORY: Cough, pain. The trachea, heart, mediastinal contour, lung wiggins and bony thorax are unremarkable. IMPRESSION: Unremarkable chest x-ray. Transcribed By: TTR Dictated By: KENNY ALEXANDER JR, MD Electronically Authenticated By: KENNY ALEXANDER JR, MD Signed Date/Time: 02/06/19 1328 - Medical Decision Making 48-year-old male presents with a shortness of breath. Labs were completed. D-dimer was elevated so, VQ scan was ordered. Chest x-ray completed. VQ scan pending. Patient received morphine 2 mg for pain and 4 mg of Zofran. Patient was signed out to colleague Reji MADRIGAL. ED Disposition Clinical Impression: Cholecystitis without cholelithiasis, Nausea and vomiting in adult Abdominal pain Qualifiers: Abdominal location: right upper quadrant Qualified Code(s): R10.11 - Right upper quadrant pain Disposition: OP ADMIT IP TO THIS HOSP Condition: Stable <REJI TEJADA - Last Filed: 02/07/19 02:24> ED Review of Systems ROS: Stated complaint: (R) LUNG PAIN/COUGHING Other details as noted in HPI ED Course Vital Signs 02/06/19 02/06/19 02/06/19 09:40 17:43 20:42 Temperature 97.7 F 98.4 F Pulse Rate 74 89 Respiratory 18 18 18 Rate Blood Pressure 161/89 Blood Pressure 140/94 [Right] O2 Sat by Pulse 99 99 Oximetry 02/06/19 02/07/19 02/07/19 21:18 01:00 01:05 Temperature 98.5 F Pulse Rate 75 Respiratory 15 19 16 Rate Blood Pressure Blood Pressure 139/86 [Right] O2 Sat by Pulse 98 Oximetry ED Medical Decision Making - Lab Data Result diagrams: 02/06/19 11:52 02/06/19 11:52 - Radiology Data I assumed care of patient from Wicho jimenez PA-C at shift change at 1900 hours. Patient had been worked up for a possible PE. Lab test results are unre markable. Awaiting the Imaging Report for VQ scan. On reevaluation, patient's pain is in the RUQ area with a positive Summers's sign. Gallbladder US ordered and patient treated for pain. The VQ Scan report was reviewed and it shows low probability for PE. The Gallbladder US shows sludge in the Gallbladder with thickened gallbladder wall measuring 5 mm. However no gallstones were seen on US. dISCU - Medical Decision Making I assumed care for the patient from Piedad Stephenson PA-C at shift change at 1900 hours. Patient had presented to the ED with c/o right-sided chest pain and dyspnea, nausea and vomiting with RUQ pain. Patient was worked up for a possible PE. All lab test results are unremarkable except for elevated D-Dimer. VQ Scan was ordered, and at shift change the patient resting comfortably in the room waiting for VQ Report . Patient was initially treated for pain with Morphine. On reevaluation, the resting comfortably on the bed however the exam shows right upper quadrant tenderness with a positive Summers sign. Gallbladder ultrasound was ordered, and the patient treated for pain. Liver enzymes test was also ordered. VQ scan tests shows low probability of PE. The gallbladder ultrasound shows slight in the gallbladder with thickened gallbladder wall measuring 5 mm. There are no visible gallstones. These findings were scratched with the ED attending physician Dr. Maradiaga who agreed with the plan of care. The patient was started on Flagyl and Levaquin IV since the patient is allergic to penicillin. The general surgeon electrical and electronic assembler doctor, Dr. Orantes was paged and these findings were discussed with him. Dr. Orantes and advised that the patient be admitted to the hospitalist if the patient's pain is not well controlled, and he shall consult on the patient in the morning for a possible cholecystectomy procedure. The hospitalist physician electrical and electronic assembler Dr. Farley was also paged and these findings also discussed with him. Dr. Farley admitted the patient to the hospital for further pain control and treatment. - Differential Diagnosis Abdominal pain, PE, Gallstones, Cholecystitis, NSTEMI Critical Care Time: Yes Critical care time in (mins) excluding proc time.: 1 Critical care attestation.: If time is entered above; I have spent that time in minutes in the direct care of this critically ill patient, excluding procedure time. ED Disposition Is pt being admited?: Yes Does the pt Need Aspirin: No Time of Disposition: 02:23
--- NOTE | 2019-02-06 13:33 | XRay Report ---
ROUTINE CHEST, TWO VIEWS: HISTORY: Cough, pain. The trachea, heart, mediastinal contour, lung wiggins and bony thorax are unremarkable. IMPRESSION: Unremarkable chest x-ray.
[2019-02-06] MEDS ORDERED: ZOFRAN IV ONE (16:34)
[2019-02-06] MEDS ORDERED: MORPHINE IV ONE (16:34)
[2019-02-06] MEDS ORDERED: ZOFRAN ONE (16:38)
[2019-02-06] MEDS ORDERED: MORPHINE ONE (16:38)
--- NOTE | 2019-02-06 19:25 | Nuclear Medicine Report ---
PROCEDURE: Nuclear medicine ventilation and perfusion lung scan. TECHNIQUE: Ventilation imaging was done in the posterior projection using 16.2 mCi of xenon-133 gas. Perfusion imaging was done in multiple projections using 5.1 mCi of technetium 99m MAA. HISTORY: dyspnea/noncompliant with anticoag COMPARISONS: Comparison chest radiograph 02/06/2019. FINDINGS: There is symmetrical, homogeneous ventilation bilaterally. There is no trapping of xenon gas in the w ashout phase of the study. The perfusion images are also homogeneous. There are no mismatched perfusi on defects. The lung scan is almost normal and caries a very low probability of pulmonary embolism. IMPRESSION: Very low probability of pulmonary embolism. This document is electronically signed by Wilfrido Valdez MD., Feb 06 2019 07:23:57 PM ET
[2019-02-06] MEDS ORDERED: LOVENOX SUB-Q ONE (21:00)
[2019-02-06] MEDS ORDERED: PERCOCET 5/325 PO ONE (21:06)
[2019-02-06] MEDS ORDERED: ZOFRAN ODT PO ONE (21:06)
--- NOTE | 2019-02-06 21:58 | Ultrasound Report ---
PROCEDURE: US GALLBLADDER TECHNIQUE: Real-time sonography in multiple planes of the gallbladder fossa and CBD with imaging of the adjacent liver, pancreas, and right kidney was performed with image documentation. CPT 96136 HISTORY: Right upper quadrant pain COMPARISONS: None . FINDINGS: Liver: There is diffuse increased echogenicity of the liver, compatible with fatty infiltration. Th ere is diffuse heterogeneity. Gallbladder: There is sludge within the gallbladder lumen. No cholelithiasis. The gallbladder wall i s thickened, measuring 5 mm in thickness. Intrahepatic bile ducts: Normal . Extrahepatic bile ducts: Common bile duct measures 5 mm in caliber Pancreas: Not well visualized. Right kidney: Normal echotexture. No focal renal mass, calculus, or hydronephrosis. Other: No free fluid. IMPRESSION: Fatty infiltration of liver. Gallbladder sludge and gallbladder wall thickening. There is no cholelithiasis, however cannot exclud e cholecystitis. Correlation with hepatobiliary scan could be obtained as clinically indicated No biliary ductal dilatation . This document is electronically signed by Arianna Price MD., Feb 06 2019 09:56:27 PM ET
[2019-02-07] MEDS ORDERED: ZOFRAN ONE (00:03)
[2019-02-07] MEDS ORDERED: ZOFRAN IV ONE (00:05)
[2019-02-07] MEDS ORDERED: LEVAQUIN 500MG/100ML 500 MG/100 ML BAG IV ONE (00:21)
[2019-02-07] MEDS ORDERED: NACL 0.9% 1000 ML 1,000 ML IV ONE (00:22)
[2019-02-07] MEDS ORDERED: DILAUDID IV ONE (00:22)
[2019-02-07] MEDS ORDERED: REGLAN IV ONE (00:22)
[2019-02-07 00:35] LABS: Bilirubin,Direct 0.2 mg/dL (0-0.2)
[2019-02-07] MEDS ORDERED: FLAGYL 500 MG/100 ML 500 MG/100 ML BAG IV NR (01:00)
[2019-02-07] MEDS ORDERED: SODIUM CHLORIDE FLUSH SYRINGE 10 ML IV PRN (02:28)
[2019-02-07] MEDS ORDERED: ZOFRAN IV PRN (02:28)
[2019-02-07] MEDS ORDERED: TYLENOL PO PRN (02:28)
--- NOTE | 2019-02-07 03:00 | History and Physical Report ---
History of Present Illness Date of examination: 02/07/19 Date of admission: 02/07/2019 Chief complaint: Abdomnal pain History of present illness: Patient is a 48-year-old male with past medical history of PE, GERD, asthma, hypertension and chronic lymphedema who presents to the ER with complaints of cough and right chest pain 2 days. Patient states that he had been having right chest pain, associated with shortness of breath, patient's report a history of PE for which he was hospitalized, patient states that he feels like the pain is similar to the previous pain. Patient also states that he has been having intermittent productive coughing as well, he denies abdominal pain, denies nausea or vomiting, denies fever, denies chills, denies recent traveling. Patient had an ultrasound of the gallbladder, which showed acute cholecystitis. Surgery is consulted and patient is admitted for further evaluation and treatments. Past History Past Medical History: hypertension, other (PE) Social history: no significant social history, lives with family Medications and Allergies Allergies Allergy/AdvReac Type Severity Reaction Status Date / Time heparin AdvReac Unknown Verified 12/25/18 10:38 Latex, Natural Rubber AdvReac Hives Verified 12/25/18 10:38 Penicillins AdvReac Hives Verified 12/25/18 10:38 Sulfa (Sulfonamide AdvReac Hives Verified 12/25/18 10:38 Antibiotics) coumadin AdvReac Bleeding Uncoded 12/25/18 10:38 Home Medications Medication Instructions Recorded Confirmed Last Taken Type No Known Home Medications [No 02/07/19 02/07/19 Unknown History Reported Home Medications] Active Meds: Active Medications Acetaminophen (Tylenol) 650 mg PO Q4H PRN PRN Reason: Pain MILD(1-3)/Fever >100.5/CARLIN Sodium Chloride (Nacl 0.9% 1000 Ml) 1,000 mls @ 125 mls/hr IV ONCE ONE Stop: 02/07/19 08:21 Last Admin: 02/07/19 01:02 Dose: 125 mls/hr Documented by: Morphine Sulfate (Morphine) 2 mg IV Q4H PRN PRN Reason: Pain, Moderate (4-6) Ondansetron HCl (Zofran) 4 mg IV Q8H PRN PRN Reason: Nausea And Vomiting Sodium Chloride (Sodium Chloride Flush Syringe 10 Ml) 10 ml IV BID DEE Sodium Chloride (Sodium Chloride Flush Syringe 10 Ml) 10 ml IV PRN PRN PRN Reason: LINE FLUSH Review of Systems Respiratory: shortness of breath, other (Right chest pain) Exam - Constitutional Vitals: Temp Pulse Resp BP Pulse Ox 98.5 F 75 16 139/86 98 02/07/19 01:00 02/07/19 01:00 02/07/19 02:05 02/07/19 01:00 02/07/19 01:00 General appearance: Present: no acute distress - EENT Eyes: Present: EOM intact ENT: hearing intact - Neck Neck: Present: normal ROM - Respiratory Respiratory effort: normal Respiratory: bilateral: CTA - Cardiovascular Rhythm: regular Heart Sounds: Present: S1 & S2 - Abdominal General gastrointestinal: Present: tender Localized gastrointestinal: tender: RUQ Male genitourinary: Present: deferred - Rectal Rectal Exam: deferred - Integumentary Integumentary: Present: warm - Musculoskeletal Musculoskeletal: strength equal bilaterally - Psychiatric Psychiatric: cooperative - Neurologic Neurologic: moves all extremities Results - Labs CBC & Chem 7: 02/06/19 11:52 02/06/19 11:52 Labs: Laboratory Last Values WBC 3.9 K/mm3 (4.5-11.0) L 02/06/19 11:52 RBC 4.49 M/mm3 (3.65-5.03) 02/06/19 11:52 Hgb 13.5 gm/dl (11.8-15.2) 02/06/19 11:52 Hct 40.0 % (35.5-45.6) 02/06/19 11:52 MCV 89 fl (84-94) 02/06/19 11:52 MCH 30 pg (28-32) 02/06/19 11:52 MCHC 34 % (32-34) 02/06/19 11:52 RDW 14.7 % (13.2-15.2) 02/06/19 11:52 Plt Count 242 K/mm3 (140-440) 02/06/19 11:52 Lymph % (Auto) 25.1 % (13.4-35.0) 02/06/19 11:52 [place] % (Auto) 7.0 % (0.0-7.3) 02/06/19 11:52 Eos % (Auto) 2.5 % (0.0-4.3) 02/06/19 11:52 Baso % (Auto) 0.6 % (0.0-1.8) 02/06/19 11:52 Lymph # 1.0 K/mm3 (1.2-5.4) L 02/06/19 11:52 [place] # 0.3 K/mm3 (0.0-0.8) 02/06/19 11:52 Eos # 0.1 K/mm3 (0.0-0.4) 02/06/19 11:52 Baso # 0.0 K/mm3 (0.0-0.1) 02/06/19 11:52 Seg Neutrophils % 64.8 % (40.0-70.0) 02/06/19 11:52 Seg Neutrophils # 2.5 K/mm3 (1.8-7.7) 02/06/19 11:52 924.26 ng/mlDDU (0-234) H 02/06/19 11:52 Sodium 140 mmol/L (137-145) 02/06/19 11:52 Potassium 4.2 mmol/L (3.6-5.0) 02/06/19 11:52 Chloride 105.1 mmol/L (98-107) 02/06/19 11:52 Carbon Dioxide 23 mmol/L (22-30) 02/06/19 11:52 16 mmol/L 02/06/19 11:52 BUN 7 mg/dL (9-20) L 02/06/19 11:52 0.9 mg/dL (0.8-1.5) 02/06/19 11:52 Estimated GFR > 60 ml/min 02/06/19 11:52 8 % 02/06/19 11:52 Glucose 90 mg/dL (75-100) 02/06/19 11:52 Calcium 9.0 mg/dL (8.4-10.2) 02/06/19 11:52 1.00 mg/dL (0.1-1.2) 02/06/19 23:40 0.2 mg/dL (0-0.2) 02/06/19 23:40 0.8 mg/dL 02/06/19 23:40 AST 38 units/L (5-40) 02/06/19 23:40 ALT 50 units/L (7-56) 02/06/19 23:40 167 units/L (35-129) H 02/06/19 23:40 < 0.010 ng/mL (0.00-0.029) 02/06/19 11:52 7.2 g/dL (6.3-8.2) 02/06/19 23:40 4.0 g/dL (3.9-5) 02/06/19 23:40 1.3 % 02/06/19 23:40 Assessment and Plan Assessment and plan: 1. Acute cholicistitis 2. RUQ pain/tenderness (due to above) 3. H/o PE 4. HTN 5. Asthma Plan Pt is admitted to surgical floor Consult surgery for cholecystitis Keep NPO for possible surgery in am Morphine PRN for pain control Protonix 40 IV Qday IVF with NS@125 ml Further plan per surgery Plan of care was d/w pt in spouse in room Pt's condition and plan of care d/w Dr Farley Advance Directives: Yes VTE prophylaxis?: Mechanical Plan of care discussed with patient/family: Yes
--- NOTE | 2019-02-07 08:51 | Consultation ---
History of Present Illness Consult date: 02/07/19 Reason for consult: other (chest pain) Requesting physician: JODY WARD Chief complaint: chest and cough x 2 days - History of present illness History of present illness: 48yo M with a history of PE in 2004 presents with a 2 day history of right lower chest wall pain as well as cough and shortness of breath. He has not been on his Lovenox for the past 4 months due to lack of resources. He was recently incarcerated and has not been granted disability in order to pay for his medications. He reports that he continues to have intermittent shortness of breath. The cough was associated with brownish flakes coming up with it. All of this is reminiscent of his PE in 2004. VQ scan done last night was low probability. D-dimer was elevated. In addition, he reports that at least the past 2 months he has had intermittent nausea and vomiting. He is limited certain foods. He was recently admitted for epigastric pain for which he got an upper and lower endoscopy. He reports that only 2 polyps were found on the colonoscopy. Past History Past Medical History: hypertension, other (PE; BLE chronic lymphedema since ) Past Surgical History: Other (IVC filter placement) Social history: no significant social history, lives with family, smoking (1ppd) Family history: other (lymphedema) Medications and Allergies Allergies Allergy/AdvReac Type Severity Reaction Status Date / Time heparin AdvReac Unknown Verified 12/25/18 10:38 Latex, Natural Rubber AdvReac Hives Verified 12/25/18 10:38 Penicillins AdvReac Hives Verified 12/25/18 10:38 Sulfa (Sulfonamide AdvReac Hives Verified 12/25/18 10:38 Antibiotics) coumadin AdvReac Bleeding Uncoded 12/25/18 10:38 Home Medications Medication Instructions Recorded Confirmed Last Taken Type No Known Home Medications [No 02/07/19 02/07/19 Unknown History Reported Home Medications] Active Meds: Active Medications Acetaminophen (Tylenol) 650 mg PO Q4H PRN PRN Reason: Pain MILD(1-3)/Fever >100.5/CARLIN Morphine Sulfate (Morphine) 2 mg IV Q4H PRN PRN Reason: Pain, Moderate (4-6) Ondansetron HCl (Zofran) 4 mg IV Q8H PRN PRN Reason: Nausea And Vomiting Sodium Chloride (Sodium Chloride Flush Syringe 10 Ml) 10 ml IV BID DEE Sodium Chloride (Sodium Chloride Flush Syringe 10 Ml) 10 ml IV PRN PRN PRN Reason: LINE FLUSH Review of Systems - Constitutional chronic pain (in legs), no fever, no chills - Cardiovascular chest pain, shortness of breath - Respiratory hemoptysis (brown flakes) - Gastrointestinal abdominal pain, nausea, vomiting (with meals), no hematemesis, no coffee ground emesis, no BRBPR, no melena, no hematochezia, no heartburn, no dyspepsia/bloating - Genitourinary no dysuria - Muskuloskeletal no low back pain - Integumentary no pruritis, no wounds - Hematologic/Lymphatic lymphedema Exam Vital Signs Temp Pulse Resp BP Pulse Ox 97.7 F 74 18 161/89 99 02/06/19 09:40 02/06/19 09:40 02/06/19 09:40 02/06/19 09:40 02/06/19 09:40 - General physical appearance Positive: no distress, no pain - Eyes Positive: normal occular movement. Negative: icteric - Respiratory Positive: normal expansion, normal respiratory effort, clear to auscultation - Cardiovascular Rhythm: regular - Abdomen Abdomen: Present: soft, tender (very minimal in RUQ), bowel sounds hypoactive. Absent: distended, masses, guarding, rigid, wound, surgical scars - Integumentary no rash, no growths, no abnormal pigmentation - Neurologic Neurologic: alert and oriented to time, place and person, motor strength and sensation are grossly intact - Musculoskeletal other (bilateral lower extremity lymphedema) - Psychiatric Psychiatric: appropriate mood/affect, intact judgment & insight Results - Labs 02/06/19 11:52 02/06/19 11:52 Abnormal lab results 02/06/19 02/06/19 02/06/19 Range/Units 11:52 11:52 11:52 WBC 3.9 L (4.5-11.0) K/mm3 Lymph # 1.0 L (1.2-5.4) K/mm3 D-Dimer 924.26 H (0-234) ng/mlDDU BUN 7 L (9-20) mg/dL Alkaline Phosphatase (35-129) units/L 02/06/19 Range/Units 23:40 WBC (4.5-11.0) K/mm3 Lymph # (1.2-5.4) K/mm3 D-Dimer (0-234) ng/mlDDU BUN (9-20) mg/dL Alkaline Phosphatase 167 H (35-129) units/L Diabetes panel 02/06/19 02/06/19 Range/Units 11:52 23:40 Sodium 140 (137-145) mmol/L Potassium 4.2 (3.6-5.0) mmol/L Chloride 105.1 (98-107) mmol/L Carbon Dioxide 23 (22-30) mmol/L BUN 7 L (9-20) mg/dL Creatinine 0.9 (0.8-1.5) mg/dL Glucose 90 (75-100) mg/dL Calcium 9.0 (8.4-10.2) mg/dL AST 38 (5-40) units/L ALT 50 (7-56) units/L Alkaline Phosphatase 167 H (35-129) units/L Total Protein 7.2 (6.3-8.2) g/dL Albumin 4.0 (3.9-5) g/dL Calcium panel 02/06/19 02/06/19 Range/Units 11:52 23:40 Calcium 9.0 (8.4-10.2) mg/dL Albumin 4.0 (3.9-5) g/dL Pituitary panel 02/06/19 Range/Units 11:52 Sodium 140 (137-145) mmol/L Potassium 4.2 (3.6-5.0) mmol/L Chloride 105.1 (98-107) mmol/L Carbon Dioxide 23 (22-30) mmol/L BUN 7 L (9-20) mg/dL Creatinine 0.9 (0.8-1.5) mg/dL Glucose 90 (75-100) mg/dL Calcium 9.0 (8.4-10.2) mg/dL Adrenal panel 02/06/19 02/06/19 Range/Units 11:52 23:40 Sodium 140 (137-145) mmol/L Potassium 4.2 (3.6-5.0) mmol/L Chloride 105.1 (98-107) mmol/L Carbon Dioxide 23 (22-30) mmol/L BUN 7 L (9-20) mg/dL Creatinine 0.9 (0.8-1.5) mg/dL Glucose 90 (75-100) mg/dL Calcium 9.0 (8.4-10.2) mg/dL Total Bilirubin 1.00 (0.1-1.2) mg/dL AST 38 (5-40) units/L ALT 50 (7-56) units/L Alkaline Phosphatase 167 H (35-129) units/L Total Protein 7.2 (6.3-8.2) g/dL Albumin 4.0 (3.9-5) g/dL - Imaging Chest x-ray: report reviewed, image reviewed US - abdomen: report reviewed, image reviewed Additional studies: VQ scan - reviewed report Assessment and Plan - Patient Problems (1) Chest pain Current Visit: Yes Status: Acute Qualifiers: Chest pain type: chest pain on breathing Qualified Code(s): R07.1 - Chest pain on breathing; R07.81 - Pleurodynia Plan to address problem: Pt stable. I discussed this situation with Dr. Lebron. Despite the low probability VQ scan, I'm concerned about the history of the exact same presentation now as when he had a PE in 2004. Theoretically, his risk is lower as he has a IVC filter in place. She will continue the workup as appropriate. (2) Nausea and vomiting in adult Current Visit: Yes Status: Acute Plan to address problem: Pt stable. This is probably a separate issue. This may be related to gallbladder dysfunction and/or chronic cholecystitis. We will get a HIDA scan to further evaluate. No emergent surgery is necessary. Time=45min (3) Lymphedema of both lower extremities Current Visit: Yes Status: Acute Plan to address problem: Pt stable. Would recommend thigh-high compression stockings.
[2019-02-07] MEDS: SODIUM CHLORIDE FLUSH SYRINGE 10 ML IV SCH ×2 (10:34→21:11)
--- NOTE | 2019-02-07 11:58 | Cat Scan Report ---
PROCEDURE: CT ANGIO CHEST TECHNIQUE: CT examination of the chest after IV contrast. Multiplanar angiographic image post processing. HISTORY: right-sided chest pain COMPARISONS: 2 view chest 02/06/2019 FINDINGS: Normal cardiac size without pericardial effusion. Slight fusiform ectasia of the distal aortic arch with maximum diameter 4.2 cm. Intact aorta without dissection. Normal-appearing esophagus. No hilar mass or mediastinal adenopathy. The visualized pulmonary arteries are diffusely patent bilaterally. There is no filling defect to sug gest PE. No acute fracture. No pneumothorax, pleural effusion, or focal pulmonary consolidation. Linear scar versus atelectasis right lower lobe posteriorly. No evidence of lung mass or pulmonary nodule. IMPRESSION: Slight fusiform ectasia of distal aortic arch with maximum 4.2 cm diameter Linear scar versus atelectasis right lower lobe posteriorly No CT evidence of pulmonary arterial embolic disease This document is electronically signed by Oliverio Lozano MD., Feb 07 2019 11:56:34 AM ET
[2019-02-07] MEDS ORDERED: APRESOLINE IV PRN (13:00)
[2019-02-07] MEDS: MORPHINE IV PRN ×2 (13:39→21:11)
--- NOTE | 2019-02-07 14:49 | Event Note ---
Date: 02/07/19 Patient seen and examined Patient is a 48-year-old male with past medical history of PE, GERD, asthma, hypertension and chronic lymphedema who presents to the ER with complaints of cough and right chest pain 2 days. Her VQ scan of the lung and CTA of the chest was negative for any PE or pneumonia. Abdominal ultrasound is concerning for possible cholecystitis. has been consulted and recommended HIDA scan, which will be done tomorrow. We'll continue current management and plan as dictated in the H&P. Abdominal US: Fatty infiltration of liver. Gallbladder sludge and gallbladder wall thickening. There is no cholelithiasis, however cannot exclude cholecystitis. Correlation with hepatobiliary scan could be obtained as clinically indicated No biliary ductal dilatation .
[2019-02-07] MEDS: HABITROL TD SCH (17:26)
[2019-02-08] MEDS: MORPHINE IV PRN ×2 (01:49→10:15)
[2019-02-08 04:58] LABS: Basophils % (Auto) 0.8 % (0.0-1.8); Eosinophils # (Auto) 0.1 K/mm3 (0.0-0.4); Hematocrit 37.4 % (35.5-45.6); Hemoglobin 12.7 gm/dl (11.8-15.2); Lymphocytes % (Auto) 29.4 % (13.4-35.0); Mean Corpuscular HGB Conc 34 % (32-34); Mean Corpuscular Volume 88 fl (84-94); Monocytes # (Auto) 0.3 K/mm3 (0.0-0.8); Monocytes % (Auto) 8.8 % (0.0-7.3); Platelet Count 219 K/mm3 (140-440); Red Blood Count 4.24 M/mm3 (3.65-5.03); Red Cell Distribution Width 14.5 % (13.2-15.2)
[2019-02-08 05:18] LABS: BUN/Creatinine Ratio 10; Blood Urea Nitrogen 9 mg/dL (9-20); Calcium 8.6 mg/dL (8.4-10.2)
[2019-02-08 05:19] LABS: Alanine Aminotransferase 45 units/L (7-56); Albumin 3.6 g/dL (3.9-5); Hemolysis Index 3
[2019-02-08 05:21] LABS: Bilirubin,Direct < 0.2 mg/dL (0-0.2)
[2019-02-08] MEDS ORDERED: KINEVAC IV ONE ×2 (08:03→08:05)
[2019-02-08] MEDS: HABITROL TD SCH (10:15)
[2019-02-08] MEDS: SODIUM CHLORIDE FLUSH SYRINGE 10 ML IV SCH (10:16)
--- NOTE | 2019-02-08 11:17 | Nuclear Medicine Report ---
HEPATOBILIARY SCAN: History: Epigastric pain. Comparison: Right upper quadrant ultrasound performed 02/06/19. Following the injection of the radionuclide, serial scanning was obtained over the right upper quadrant. Initial imaging of the liver demonstrates a relatively normal activity pattern. Progressive concentration of the radionuclide in the bile ducts, with filling of both the gallbladder and small bowel, is identified within a normal time period. The gallbladder ejection fraction is decreased measuring 10%. The patient reports the same symptoms were reproduced following the infusion of CCK. IMPRESSION: Cystic duct is patent. Normal biliary to bowel transit time. Decreased gallbladder ejection fraction measuring 10% which could represent biliary dyskinesia. Symptomatology as described.
[2019-02-08] MEDS ORDERED: LOVENOX SUB-Q SCH ×2 (12:00)
[2019-02-08 12:07] VITALS: BP 147/92
--- NOTE | 2019-02-08 12:18 | Progress Note ---
Assessment and Plan - Patient Problems (1) Biliary dyskinesia Current Visit: Yes Status: Acute Plan to address problem: Pt stable. Discussed case with patient, case management, hospitalist. Patient would benefit from cholecystectomy, but this is not an emergency. I've encouraged the patient to complete his [employer] paperwork JUAN. Thereafter we sh ould be able to schedule him for an outpatient procedure. I have given him my business card and he is to call for an appointment once he gets approval from [employer]. I have advised him on having a bland diet to try to keep his symptoms under control. He was appreciative of the care and the time. Please call with questions. time=20min Subjective Date of service: 02/08/19 Patient Reports: Positive: no new complaints, still having pain Objective Vital Signs - 12hr 02/08/19 02/08/19 05:22 11:35 Temperature 98.3 F 97.8 F Pulse Rate 65 63 Respiratory 18 20 Rate Blood Pressure 133/72 147/92 O2 Sat by Pulse 94 98 Oximetry - General physical appearance no distress - Eyes normal occular movement - Respiratory normal expansion, normal respiratory effort - Abdomen soft, tender (mild in RUQ), not distended, not guarding, not rigid - Psychiatric oriented to time, oriented to person, oriented to place, speech is normal, memory intact - Labs 02/08/19 04:24 02/08/19 04:24 Diabetes panel 02/08/19 Range/Units 04:24 Sodium 136 L (137-145) mmol/L Potassium 3.7 (3.6-5.0) mmol/L Chloride 101.0 (98-107) mmol/L Carbon Dioxide 24 (22-30) mmol/L BUN 9 (9-20) mg/dL Creatinine 0.9 (0.8-1.5) mg/dL Glucose 95 (75-100) mg/dL Calcium 8.6 (8.4-10.2) mg/dL AST 45 H (5-40) units/L ALT 45 (7-56) units/L Alkaline Phosphatase 147 H (35-129) units/L Total Protein 6.7 (6.3-8.2) g/dL Albumin 3.6 L (3.9-5) g/dL Calcium panel 02/08/19 Range/Units 04:24 Calcium 8.6 (8.4-10.2) mg/dL Albumin 3.6 L (3.9-5) g/dL Pituitary panel 02/08/19 Range/Units 04:24 Sodium 136 L (137-145) mmol/L Potassium 3.7 (3.6-5.0) mmol/L Chloride 101.0 (98-107) mmol/L Carbon Dioxide 24 (22-30) mmol/L BUN 9 (9-20) mg/dL Creatinine 0.9 (0.8-1.5) mg/dL Glucose 95 (75-100) mg/dL Calcium 8.6 (8.4-10.2) mg/dL Adrenal panel 02/08/19 Range/Units 04:24 Sodium 136 L (137-145) mmol/L Potassium 3.7 (3.6-5.0) mmol/L Chloride 101.0 (98-107) mmol/L Carbon Dioxide 24 (22-30) mmol/L BUN 9 (9-20) mg/dL Creatinine 0.9 (0.8-1.5) mg/dL Glucose 95 (75-100) mg/dL Calcium 8.6 (8.4-10.2) mg/dL Total Bilirubin 0.90 (0.1-1.2) mg/dL AST 45 H (5-40) units/L ALT 45 (7-56) units/L Alkaline Phosphatase 147 H (35-129) units/L Total Protein 6.7 (6.3-8.2) g/dL Albumin 3.6 L (3.9-5) g/dL - Imaging CT scan - chest: report reviewed, image reviewed Additional Studies: HIDA - reviewed images and report
--- NOTE | 2019-02-08 12:20 | Discharge Summary ---
Providers - Providers Date of Admission: 02/07/19 02:26 Date of discharge: 02/08/19 Attending physician: YOLANDA KRUEGER Primary care physician: ESTEVAN ABBOTT Hospitalization Condition: Stable Pertinent studies: HIDA scan Cystic duct is patent. Normal biliary to bowel transit time. Decreased gallbladder ejection fraction measuring 10% which could represent biliary dyskinesia. Symptomatology as described. CTA chest Slight fusiform ectasia of distal aortic arch with maximum 4.2 cm diameter Linear scar versus atelectasis right lower lobe posteriorly No CT evidence of pulmonary arterial embolic disease Abdomen ultrasound Fatty infiltration of liver. Gallbladder sludge and gallbladder wall thickening. There is no cholelithiasis, however cannot exclude cholecystitis. Correlation with hepatobiliary scan could be obtained as clinically indicated No biliary ductal dilatation . VQ scan Very low probability of pulmonary embolism. Chest x-ray: Unremarkable chest x-ray. Hospital course: Brief history: Patient is a 48-year-old male with past medical history of PE status post IVC filter placement, GERD, asthma, hypertension and chronic lymphedema who presents to the ER with complaints of cough and right chest pain 2 days. He has not been on his Lovenox for the past 4 months due to lack of resources. He was recently incarcerated and has not been granted disability in order to pay for his medications. He was recently discharged from the hospital after being minutes with the rectal bleeding due to external hemorrhoids. During that admission patient had EGD and colonoscopy without any major findings. Patient was admitted to the hospital for further evaluation and management. Discharge diagnosis and management: /Right-sided Chest pain - low probability for PE on VQ scan, - CTA chest ordered due to patient's history of pulmonary embolism back 2004, CTA chest was negative for any acute PE - Chest pain most likely musculoskeletal - likely costochondritis, cardiac enzymes has been normal / Nausea and vomiting in adult Likely due to chronic cholecystitis Abdominal ultrasound and HIDA scan obtained Gen. surgery consulted and recommended outpatient follow-up with the general surgeon for elective cholecystectomy / Lymphedema of both lower extremities Pt stable. recommended thigh-high compression stockings. /History of recurrent PE and DVT - Patient has IVC filter placed - He was supposed to take Lovenox twice a day for lifelong - Patient required to follow up outpatient with executive recruiter Physical exam: General appearance: Present: no acute distress - EENT Eyes: Present: EOM intact ENT: hearing intact - Neck Neck: Present: normal ROM - Respiratory Respiratory effort: normal Respiratory: bilateral: CTA - Cardiovascular Rhythm: regular Heart Sounds: Present: S1 & S2 - Abdominal General gastrointestinal: Present: tender Localized gastrointestinal: tender: RUQ Male genitourinary: Present: deferred - Rectal Rectal Exam: deferred - Integumentary Integumentary: Present: warm - Musculoskeletal Musculoskeletal: strength equal bilaterally - Psychiatric Psychiatric: cooperative - Neurologic Neurologic: moves all extremities Disposition: -01 TO HOME OR SELFCARE Time spent for discharge: 34 minutes Core Measure Documentation - Palliative Care Palliative Care/ Comfort Measures: Not Applicable - Core Measures Any of the following diagnoses?: none Exam - Constitutional Vitals: Temp Pulse Resp BP Pulse Ox 97.8 F 63 20 147/92 98 02/08/19 11:35 02/08/19 11:35 02/08/19 11:35 02/08/19 11:35 02/08/19 11:35 Plan Activity: advance as tolerated Weight Bearing Status: Weight Bear as Tolerated Diet: low fat, low salt Follow up with: ESTEVAN ABBOTT MD [Primary Care Provider] - 7 Days JUANPABLO YEPEZ MD [Staff Physician] - 7 Days CHAPO MELISSA MD [Staff Physician] - 7 Days Forms: Work/School Release Form Prescriptions: Enoxaparin [Lovenox] 120 mg SUB-Q Q12HR #14 syringe
== END 2019-02-08 15:30 | disposition home or self-care (01) | DRG 446 ==
LOC: ED 09:03 → 3A 02-07 02:26
PROVIDERS: ADMIT Internal Medicine; ATTEND Internal Medicine
DX: K81.0 Acute cholecystitis (principal); R07.89 Other chest pain; Z88.0 Allergy status to penicillin; Z88.2 Allergy status to sulfonamides; Z88.8 Allergy status to other drugs, medicaments and biological substances; Z86.711 Personal history of pulmonary embolism; J45.909 Unspecified asthma, uncomplicated; F17.200 Nicotine dependence, unspecified, uncomplicated; K21.9 Gastro-esophageal reflux disease without esophagitis; I89.0 Lymphedema, not elsewhere classified; R07.81 Pleurodynia; K82.8 Other specified diseases of gallbladder
CPT/HCPCS: 36415; 71046; 71275; 76705; 78227; 78582; 80048; 80076; 84484; 85025; 85379; 87116; 99406; G0378; A9537; A9540; A9558; J0360; J1170; J1650; J1956; J2270; J2405; J2765; J2805; J7030; Q0162; Q9967

== ENCOUNTER 2019-03-24 09:35 | Emergency (ER) | payer OTHER ==
[2019-03-24] MEDS ORDERED: SUBLIMAZE IV ONE ×2 (10:13→15:23)
[2019-03-24] MEDS ORDERED: ZOFRAN IV ONE (10:13)
--- NOTE | 2019-03-24 10:18 | Emergency Department Report ---
HPI - General Chief Complaint: Extremity Injury, Upper Time Seen by Provider: 03/24/19 10:04 - HPI HPI: Room 1 The patient is a 48-year-old male presenting with chief complaint of syncope. The patient states last night he was sitting in his car "rolling a blunt" and had not smoke. When he felt as though he had to urinate. The patient states he remembers attempting to get out of his car and his heart starting to race. The patient states he had a syncopal episode when he awakened there was a man standing over him stating that he was helping him. The patient states it was dark outside at this time the patient states he passed out again when he really awake and it was light outside. The patient states he got into his car and drove home where his spouse had him call 911. Patient admits to having several minutes worth of chest pain yesterday which she described as indigestion. The patient now complains of a headache and pain in his right shoulder. The patient is his pain a score of 10/10 Location: [See above] Duration: [See above] Quality: [See above] Severity: [See above] Modifying factors: [see above] Context: [see above] Mode of transportation: [not driving] ED Past Medical Hx - Past Medical History Previous Medical History?: Yes Hx Hypertension: Yes Hx Deep Vein Thrombosis: Yes (Bilateral legs) Hx Pulmonary Embolism: Yes Hx Seizures: Yes (x 1 Not on meds) Hx Asthma: Yes Hx Tuberculosis: Yes (Treated x 9 months) Additional medical history: DVT/PE hx, chronic lymphodema - Surgical History Additional Surgical History: IVC filter - Family History Family history: no significant - Social History Smoking Status: Current Every Day Smoker Substance Use Type: Alcohol, Marijuana - Medications Home Medications: Home Medications Medication Instructions Recorded Confirmed Last Taken Type Enoxaparin [Lovenox] 120 mg SUB-Q Q12HR #14 syringe 02/08/19 03/24/19 Unknown Rx Esomeprazole Magnesium [NexIUM] 40 mg PO QDAY 03/24/19 03/24/19 Unknown History cephALEXin [Keflex] 500 mg PO Q12HR 03/24/19 03/24/19 Unknown History oxyCODONE /ACETAMINOPHEN [Percocet 1 tab PO Q6HR PRN 03/24/19 03/24/19 Unknown History 5/325] ED Review of Systems ROS: Stated complaint: R SHOULDER DISLOCATED Other details as noted in HPI Constitutional: no symptoms reported Eyes: denies: eye pain ENT: denies: throat pain Respiratory: no symptoms reported Cardiovascular: chest pain, palpitations Endocrine: no symptoms reported Gastrointestinal: denies: abdominal pain Genitourinary: denies: dysuria Musculoskeletal: arthralgia, myalgia Neurological: headache Physical Exam - Physical Exam Vital Signs: Vital Signs 03/24/19 09:43 Temperature 97.5 F L Pulse Rate 76 Respiratory 16 Rate O2 Sat by Pulse 97 Oximetry Physical Exam: GENERAL: The patient is well-developed well-nourished male lying on stretcher not appearing to be in acute distress. [] HEENT: Normocephalic. Atraumatic. Extraocular motions are intact. Patient has moist mucous membranes. NECK: Supple. Trachea midline CHEST/LUNGS: Clear to auscultation. There is no respiratory distress noted. HEART/CARDIOVASCULAR: Regular. There is no tachycardia. There is no gallop rub or murmur. ABDOMEN: Abdomen is soft, nontender. Patient has normal bowel sounds. There is no abdominal distention. SKIN: There is no rash. There is no edema. There is no diaphoresis. NEURO: The patient is awake, alert, and oriented. The patient is cooperative. The patient has no focal neurologic deficits. The patient has normal speech. Cranial nerves II through XII grossly intact MUSCULOSKELETAL: There is tenderness to palpation of the right shoulder. There is no tenderness to palpation of the remainder of the right humerus or right forearm. ED Course Vital Signs 03/24/19 09:43 Temperature 97.5 F L Pulse Rate 76 Respiratory 16 Rate O2 Sat by Pulse 97 Oximetry - Central Line Placement Right Femoral Consent Obtained: verbal consent Time Out Performed: Yes Patient Placed on Monitor/Pulse Ox: Yes MD Prep: mask, gown, gloves Central Line Prep: Chlorhexidine scrub Local Anesthesia Used: Lidocaine 1% Amount of Anesthesia Used (mls): 5 Ultrasound Used for Placement: No Central Line Lumen Inserted: triple Bloods Obtained for Lab: Yes Central Line Position: good blood return, all ports aspirated, flus, other (secured with adhesive) Dressing Applied: Tegaderm Patient Tolerated Procedure: well Complications: arterial puncture/cannula (arterial puncture 2. Needle removed and pressure held until hemostatic) ED Medical Decision Making - Lab Data Result diagrams: 03/24/19 Unknown 03/24/19 Unknown Laboratory Tests 03/24/19 03/24/19 03/24/19 11:30 11:30 Unknown WBC 9.6 RBC 4.43 Hgb 13.3 Hct 39.6 MCV 89 MCH 30 MCHC 34 RDW 14.2 Plt Count 278 Add Manual Diff Complete Total Counted 100 Seg Neuts % (Manual) 90.0 H Band Neutrophils % 0 Lymphocytes % (Manual) 5.0 L Reactive Lymphs % (Man) 0 Monocytes % (Manual) 4.0 Eosinophils % (Manual) 0 Basophils % (Manual) 0 Metamyelocytes % 1.0 Myelocytes % 0 Promyelocytes % 0 Blast Cells % 0 Nucleated RBC % Not Reportable Seg Neutrophils # Man 8.6 H Band Neutrophils # 0.0 Lymphocytes # (Manual) 0.5 L Abs React Lymphs (Man) 0.0 Monocytes # (Manual) 0.4 Eosinophils # (Manual) 0.0 Basophils # (Manual) 0.0 Metamyelocytes # 0.1 Myelocytes # 0.0 Promyelocytes # 0.0 Blast Cells # 0.0 WBC Morphology Not Reportable Hypersegmented Neuts Not Reportable Hyposegmented Neuts Not Reportable Hypogranular Neuts Not Reportable Smudge Cells Not Reportable Toxic Granulation Not Reportable Toxic Vacuolation Not Reportable Dohle Bodies Not Reportable Pelger-Huet Anomaly Not Reportable Laquita Rods Not Reportable Platelet Estimate Consistent w auto Clumped Platelets Not Reportable Plt Clumps, EDTA Not Reportable Large Platelets Few Giant Platelets Not Reportable Platelet Satelliting Not Reportable Plt Morphology Comment Not Reportable RBC Morphology Not Reportable Dimorphic RBCs Not Reportable Polychromasia Not Reportable Hypochromasia Not Reportable Poikilocytosis Not Reportable Anisocytosis Not Reportable Microcytosis Not Reportable Macrocytosis Not Reportable Spherocytes Not Reportable Pappenheimer Bodies Not Reportable Sickle Cells Not Reportable Target Cells Not Reportable Tear Drop Cells Not Reportable Ovalocytes Not Reportable Helmet Cells Not Reportable Apple-[place] Bodies Not Reportable [place] Rings Not Reportable [place] Cells Not Reportable Bite Cells Not Reportable Crenated Cell Not Reportable Elliptocytes Not Reportable Acanthocytes (Spur) Not Reportable Rouleaux Not Reportable Hemoglobin C Crystals Not Reportable Schistocytes Not Reportable Malaria parasites Not Reportable Omer Bodies Not Reportable Hem Pathologist Commnt No PT INR APTT D-Dimer Sodium Potassium Chloride Carbon Dioxide Anion Gap BUN Creatinine Estimated GFR BUN/Creatinine Ratio Glucose Calcium Magnesium Total Bilirubin AST ALT Alkaline Phosphatase Total Creatine Kinase CK-MB (CK-2) CK-MB (CK-2) Rel Index Troponin T Total Protein Albumin Albumin/Globulin Ratio TSH Free T4 Urine Color Yellow Urine Turbidity Clear Urine pH 7.0 Ur Specific [place] 1.018 Urine Protein <15 mg/dl Urine Glucose (UA) Neg Urine Ketones Tr Urine Blood Neg Urine Nitrite Neg Urine Bilirubin Neg Urine Urobilinogen 2.0 Ur Leukocyte Esterase Neg Urine WBC (Auto) 2.0 Urine RBC (Auto) 1.0 U Epithel Cells (Auto) 1.0 Urine Mucus Few Urine Opiates Screen Presumptive negative Urine Methadone Screen Presumptive negative Ur Barbiturates Screen Presumptive negative Ur Phencyclidine Scrn Presumptive negative Ur Amphetamines Screen Presumptive positive U Benzodiazepines Scrn Presumptive negative Urine Cocaine Screen Presumptive positive U Marijuana (THC) Screen Presumptive positive Drugs of Abuse Note Disclamer Plasma/Serum Alcohol 03/24/19 03/24/19 03/24/19 Unknown Unknown Unknown WBC RBC Hgb Hct MCV MCH MCHC RDW Plt Count Add Manual Diff Total Counted Seg Neuts % (Manual) Band Neutrophils % Lymphocytes % (Manual) Reactive Lymphs % (Man) Monocytes % (Manual) Eosinophils % (Manual) Basophils % (Manual) Metamyelocytes % Myelocytes % Promyelocytes % Blast Cells % Nucleated RBC % Seg Neutrophils # Man Band Neutrophils # Lymphocytes # (Manual) Abs React Lymphs (Man) Monocytes # (Manual) Eosinophils # (Manual) Basophils # (Manual) Metamyelocytes # Myelocytes # Promyelocytes # Blast Cells # WBC Morphology Hypersegmented Neuts Hyposegmented Neuts Hypogranular Neuts Smudge Cells Toxic Granulation Toxic Vacuolation Dohle Bodies Pelger-Huet Anomaly Laquita Rods Platelet Estimate Clumped Platelets Plt Clumps, EDTA Large Platelets Giant Platelets Platelet Satelliting Plt Morphology Comment RBC Morphology Dimorphic RBCs Polychromasia Hypochromasia Poikilocytosis Anisocytosis Microcytosis Macrocytosis Spherocytes Pappenheimer Bodies Sickle Cells Target Cells Tear Drop Cells Ovalocytes Helmet Cells Apple-[place] Bodies [place] Rings Julia Cells Bite Cells Crenated Cell Elliptocytes Acanthocytes (Spur) Rouleaux Hemoglobin C Crystals Schistocytes Malaria parasites Omer Bodies Hem Pathologist Commnt PT 14.5 INR 1.16 H APTT 25.4 D-Dimer 250.88 H Sodium 141 Potassium 4.0 Chloride 103.7 Carbon Dioxide 24 Anion Gap 17 BUN 9 Creatinine 0.9 Estimated GFR > 60 BUN/Creatinine Ratio 10 Glucose 100 Calcium 9.4 Magnesium 2.20 Total Bilirubin 0.90 AST 18 ALT 23 Alkaline Phosphatase 124 Total Creatine Kinase 247 H CK-MB (CK-2) 3.1 CK-MB (CK-2) Rel Index 1.2 Troponin T < 0.010 Total Protein 7.0 Albumin 3.9 Albumin/Globulin Ratio 1.3 TSH Free T4 Urine Color Urine Turbidity Urine pH Ur Specific [place] Urine Protein Urine Glucose (UA) Urine Ketones Urine Blood Urine Nitrite Urine Bilirubin Urine Urobilinogen Ur Leukocyte Esterase Urine WBC (Auto) Urine RBC (Auto) U Epithel Cells (Auto) Urine Mucus Urine Opiates Screen Urine Methadone Screen Ur Barbiturates Screen Ur Phencyclidine Scrn Ur Amphetamines Screen U Benzodiazepines Scrn Urine Cocaine Screen U Marijuana (THC) Screen Drugs of Abuse Note Plasma/Serum Alcohol 03/24/19 03/24/19 Unknown Unknown WBC RBC Hgb Hct MCV MCH MCHC RDW Plt Count Add Manual Diff Total Counted Seg Neuts % (Manual) Band Neutrophils % Lymphocytes % (Manual) Reactive Lymphs % (Man) Monocytes % (Manual) Eosinophils % (Manual) Basophils % (Manual) Metamyelocytes % Myelocytes % Promyelocytes % Blast Cells % Nucleated RBC % Seg Neutrophils # Man Band Neutrophils # Lymphocytes # (Manual) Abs React Lymphs (Man) Monocytes # (Manual) Eosinophils # (Manual) Basophils # (Manual) Metamyelocytes # Myelocytes # Promyelocytes # Blast Cells # WBC Morphology Hypersegmented Neuts Hyposegmented Neuts Hypogranular Neuts Smudge Cells Toxic Granulation Toxic Vacuolation Dohle Bodies Pelger-Huet Anomaly Laquita Rods Platelet Estimate Clumped Platelets Plt Clumps, EDTA Large Platelets Giant Platelets Platelet Satelliting Plt Morphology Comment RBC Morphology Dimorphic RBCs Polychromasia Hypochromasia Poikilocytosis Anisocytosis Microcytosis Macrocytosis Spherocytes Pappenheimer Bodies Sickle Cells Target Cells Tear Drop Cells Ovalocytes Helmet Cells Apple-[place] Bodies [place] Rings Julia Cells Bite Cells Crenated Cell Elliptocytes Acanthocytes (Spur) Rouleaux Hemoglobin C Crystals Schistocytes Malaria parasites Omer Bodies Hem Pathologist Commnt PT INR APTT D-Dimer Sodium Potassium Chloride Carbon Dioxide Anion Gap BUN Creatinine Estimated GFR BUN/Creatinine Ratio Glucose Calcium Magnesium Total Bilirubin AST ALT Alkaline Phosphatase Total Creatine Kinase CK-MB (CK-2) CK-MB (CK-2) Rel Index Troponin T Total Protein Albumin Albumin/Globulin Ratio TSH 0.862 Free T4 1.03 Urine Color Urine Turbidity Urine pH Ur Specific [place] Urine Protein Urine Glucose (UA) Urine Ketones Urine Blood Urine Nitrite Urine Bilirubin Urine Urobilinogen Ur Leukocyte Esterase Urine WBC (Auto) Urine RBC (Auto) U Epithel Cells (Auto) Urine Mucus Urine Opiates Screen Urine Methadone Screen Ur Barbiturates Screen Ur Phencyclidine Scrn Ur Amphetamines Screen U Benzodiazepines Scrn Urine Cocaine Screen U Marijuana (THC) Screen Drugs of Abuse Note Plasma/Serum Alcohol < 0.01 - EKG Data -: EKG Interpreted by Me EKG shows normal: sinus rhythm Rate: normal - EKG Data When compared to previous EKG there are: previous EKG unavailable Interpretation: other (no ischemic changes seen) - Radiology Data Radiology results: report reviewed (right shoulder x-ray, CT head, CT chest), image reviewed (CT chest, right shoulder x-ray, head CT) interpreted by me: Right shoulder x-ray- [facility] [address] [id number] Cat Scan Report Signed Patient: MIKE FUNK MR #: [id number] : 1970 Acct:[id number] Age/Sex: 48 / M ADM Date: 03/24/19 Loc: ED Attending Dr: Ordering Physician: CHRIS BAPTISTE MD Date of Service: 03/24/19 Procedure(s): CT angio chest Accession Number(s): [id number] cc: CHRIS BAPTISTE MD CTA CHEST INDICATION: Syncope, elevated d-dimer. COMPARISON: 02/07/2019 chest CTA. FINDINGS: Chest CTA performed following intravenous administration of 100 cc of Omnipaque 350. Rotational MIP's also obtained. Stable heart size. No ef fusions. No aortic dissection with distal aortic arch focal aneurysmal dilatation noted measuring up to 4.2 cm transverse caliber as on axial image 46, series 2, previously the same. No suspicious pulmonary arterial filling defects. Patent central airway. No size significant adenopathy. Normal imaged thyroid with a tiny, 3 mm indeterminate hypodensity on the left medially, axial image 13, series 2. Biapical emphysematous bullae again noted measuring up to 2.9 cm on the left, axial image 30. Mild bibasilar dependent atelectasis and/or scarring again seen. Right hemidiaphragm approximately 4.5 cm higher than the left. Contrast noted in the IVC. No significant abnormality in the imaged upper abdomen. Possible catheter or IVC filter tip in the IVC barely imaged as on axial image 152. Right AC joint separation seen on the wrapper layer view. No other focal aggressive osseous lesions. 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 Thank you for the opportunity to participate in this patient's care. Transcribed By: RS Dictated By: TANYA MEJIA MD Electronically Authenticated By: TANYA MEJIA MD Signed Date/Time: 03/24/19 1510 DD/ 1444 TD/TT: 03/24/19 1510 [facility] [address] [place] [address] Cat Scan Report Signed Patient: MIKE FUNK MR #: [id number] : 1970 Acct:[id number] Age/Sex: 48 / M ADM Date: 03/24/19 Loc: ED Attending Dr: Ordering Physician: CHRIS BAPTISTE MD Date of Service: 03/24/19 Procedure(s): CT head/brain wo con Accession Number(s): [id number] cc: CHRIS BAPTISTE MD CT HEAD WITHOUT CONTRAST INDICATION: Headache, syncope. COMPARISON: None sim ilar. FINDINGS: Noncontrast head CT demonstrates normal ventricles and sulci without acute or recent infarct, hemorrhage, mass effect or midline shift. No abnormal extra-axial fluid collections. Posterior fossa structures and basilar cisterns within normal limits. Symmetric eye globes. Mild left sphenoid sinus mucosal thickening. Clear remainder imaged paranasal sinuses and mastoid air cells. Intact calvarium. Normal overlying scalp soft tissues. Few radiopaque dental material incidentally noted. CONCLUSION: Left sphenoid sinusitis without acute intracranial CT abnormality, as described. Please correlate. Thank you for the opportunity to participate in this patient's care. Transcribed By: RS Dictated By: TANYA MEJIA MD Electronically Authenticated By: TANYA MEJIA MD Signed Date/Time: 03/24/19 104 DD/ 41 TD/TT: 03/24/19 104 - Differential Diagnosis syncope, seizures, dysrhythmia, ICH, closed head injury Critical care attestation.: If time is entered above; I have spent that time in minutes in the direct care of this critically ill patient, excluding procedure time. ED Disposition Clinical Impression: Syncope, Polysubstance abuse, Separation of left acromioclavicular joint Disposition: OP ADMIT IP TO THIS HOSP Is pt being admited?: Yes Condition: Fair Instructions: Syncope (ED) Referrals: CONRADO MCGRAW MD [Primary Care Provider] - 3-5 Days Time of Disposition: 15:31 (Hospitalist notified (Dr Young))
--- NOTE | 2019-03-24 10:45 | Cat Scan Report ---
CT HEAD WITHOUT CONTRAST INDICATION: Headache, syncope. COMPARISON: None similar. FINDINGS: Noncontrast head CT demonstrates normal ventricles and sulci without acute or recent infarct, hemorrhage, mass effect or midline shift. No abnormal extra-axial fluid collections. Posterior fossa structures and basilar cisterns within normal limits. Symmetric eye globes. Mild left sphenoid sinus mucosal thickening. Clear remainder imaged paranasal sinuses and mastoid air cells. Intact calvarium. Normal overlying scalp soft tissues. Few radiopaque dental material incidentally noted. CONCLUSION: Left sphenoid sinusitis without acute intracranial CT abnormality, as described. Please correlate. Thank you for the opportunity to participate in this patient's care.
--- NOTE | 2019-03-24 11:55 | XRay Report ---
RIGHT SHOULDER RADIOGRAPHS INDICATION: Pain after syncopal episode. COMPARISON: 02/23/2019 CXR. FINDINGS: Frontal and Y views of the right shoulder now suggest approximately 1 cm elevation of the right distal clavicular end relative to the acromion. AC joint gap though 0.4 cm. Grossly intact humeral head, felt grossly well positioned against the glenoid, though patient positioning suboptimal. Grossly normal imaged scapula, right lung and ribs. CONCLUSION: Type 2 or 3 right AC joint acute injury/separation now suspected, as detailed above. Please correlate. Thank you for the opportunity to participate in this patient's care.
[2019-03-24 12:04] LABS: Bilirubin,Urine NEG (Negative); Blood,Urine NEG (Negative); Color,Urine Yellow (Yellow); Mucus,Urine FEW /HPF; Protein,Urine <15 mg/dL mg/dL (Negative)
[2019-03-24 12:24] LABS: Hematocrit 39.6 % (35.5-45.6); Hemoglobin 13.3 gm/dl (11.8-15.2); Mean Corpuscular HGB Conc 34 % (32-34); Mean Corpuscular Volume 89 fl (84-94); Red Blood Count 4.43 M/mm3 (3.65-5.03); Red Cell Distribution Width 14.2 % (13.2-15.2)
[2019-03-24 12:27] LABS: Benzodiazepines Screen,Urine PRESUMPTIVE NEGATIVE; Methadone Screen,Urine PRESUMPTIVE NEGATIVE; Opiate Screen,Urine PRESUMPTIVE NEGATIVE
[2019-03-24 12:28] LABS: INR 1.16 (0.87-1.13)
[2019-03-24 12:29] LABS: Partial Thromboplastin Time 25.4 Sec. (24.2-36.6)
[2019-03-24 12:41] LABS: Amphetamine Screen,Urine PRESUMPTIVE POSITIVE; Cannabinoid Screen,Urine PRESUMPTIVE POSITIVE; Cocaine Screen,Urine PRESUMPTIVE POSITIVE
[2019-03-24 12:53] LABS: Basophils % (Manual) 0 % (0.0-1.8); Eosinophils % (Manual) 0 % (0.0-4.3); Total Cells Counted 100
[2019-03-24 12:54] LABS: Creatine Kinase MB 3.1 ng/mL (0.0-4.0); Large Platelets Few; Platelet Estimate Consistent w Auto
[2019-03-24 12:56] LABS: Alanine Aminotransferase 23 units/L (7-56); Albumin 3.9 g/dL (3.9-5); BUN/Creatinine Ratio 10; Blood Urea Nitrogen 9 mg/dL (9-20); Calcium 9.4 mg/dL (8.4-10.2); Hemolysis Index 8
[2019-03-24 13:01] LABS: Free T4 (Free Thyroxine) 1.03 ng/dL (0.76-1.46)
[2019-03-24 14:45] LABS: Platelet Count 278 K/mm3 (140-440)
--- NOTE | 2019-03-24 15:11 | Cat Scan Report ---
CTA CHEST INDICATION: Syncope, elevated d-dimer. COMPARISON: 02/07/2019 chest CTA. FINDINGS: Chest CTA performed following intravenous administration of 100 cc of Omnipaque 350. Rotational MIP's also obtained. Stable heart size. No effusions. No aortic dissection with distal aortic arch focal aneurysmal dilatation noted measuring up to 4.2 cm transverse caliber as on axial image 46, series 2, previously the same. No suspicious pulmonary arterial filling defects. Patent central airway. No size significant adenopathy. Normal imaged thyroid with a tiny, 3 mm indeterminate hypodensity on the left medially, axial image 13, series 2. Biapical emphysematous bullae again noted measuring up to 2.9 cm on the left, axial image 30. Mild bibasilar dependent atelectasis and/or scarring again seen. Right hemidiaphragm approximately 4.5 cm higher than the left. Contrast noted in the IVC. No significant abnormality in the imaged upper abdomen. Possible catheter or IVC filter tip in the IVC barely imaged as on axial image 152. Right AC joint separation seen on the material stress tester view. No other focal aggressive osseous lesions. 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 Thank you for the opportunity to participate in this patient's care.
[2019-03-24] MEDS ORDERED: SUBLIMAZE ONE (15:15)
[2019-03-24 17:46] VITALS: BP 153/96
--- NOTE | 2019-03-24 19:26 | Event Note ---
Date: 03/24/19 48 YO Male with PSA present to ED for evaluation on Atypical Chest pain. Pt seen and evaluated in ED and treated IAW Chest pain protocol. Serial cardiac enzymes, ekg, and telemetry monitoring were unremarkable for ischemia. D dimer was elevated. CTA chest was negative for PE. Pt was found to have evidence of substance use on UDS. Pt medically optimized and discharged home. Pt instructed to f//u pcp 3-5 days, and Ortho Surgery at discharge. Pt instructed to continue all prehospital medication as prescribed.. GENERAL: The patient is well-developed well-nourished male lying on stretcher not appearing to be in acute distress. [] HEENT: Normocephalic. Atraumatic. Extraocular motions are intact. Patient has moist mucous membranes. NECK: Supple. Trachea midline CHEST/LUNGS: Clear to auscultation. There is no respiratory distress noted. HEART/CARDIOVASCULAR: Regular. There is no tachycardia. There is no gallop rub or murmur. ABDOMEN: Abdomen is soft, nontender, nondistended. Patient has normal bowel sounds. There is no abdominal distention. SKIN: There is no rash. There is no edema. There is no diaphoresis. NEURO: The patient is awake, alert, and oriented. The patient is cooperative. The patient has normal speech, No tremors MUSCULOSKELETAL:RUE in sling, due to prior injury which was present on admission. Substance Use Type: Alcohol, Marijuana
== END 2019-03-24 20:23 | disposition admitted as inpatient to this hospital (09) ==
LOC: ED 09:35
DX: R55 Syncope and collapse (principal); F15.10 Other stimulant abuse, uncomplicated; Z91.040 Latex allergy status; Z88.0 Allergy status to penicillin; Z88.2 Allergy status to sulfonamides; Z91.09 Other allergy status, other than to drugs and biological substances; Z88.8 Allergy status to other drugs, medicaments and biological substances
CPT/HCPCS: 36415; 36556; 70450; 71275; 73030; 80053; 80307; 81001; 82550; 82553; 83735; 84439; 84443; 84484; 85007; 85025; 85379; 85610; 85730; 93005; 93010; 96374; 96375; 96376; 99285; G0480; J2405; J3010; Q9967; 80320

== ENCOUNTER 2021-08-12 11:36 | Emergency (ER) | payer OTHER ==
[2021-08-12] MEDS ORDERED: fentaNYL 100 MCG/2 ML INJ IV ONE (12:19)
[2021-08-12] MEDS ORDERED: ONDANSETRON 4 MG/2 ML INJ IV ONE (12:19)
[2021-08-12 12:55] LABS: Basophils % (Auto) 0.4 % (0.0-1.8); Eosinophils # (Auto) 0.4 K/mm3 (0.0-0.4); Eosinophils % (Auto) 7.4 % (0.0-4.3); Hematocrit 42.5 % (35.5-45.6); Hemoglobin 13.5 gm/dl (11.8-15.2); Lymphocytes # (Auto) 1.2 K/mm3 (1.2-5.4); Lymphocytes % (Auto) 20.3 % (13.4-35.0); Mean Corpuscular HGB Conc 32 % (32-34); Mean Corpuscular Volume 89 fl (84-94); Monocytes # (Auto) 0.4 K/mm3 (0.0-0.8); Monocytes % (Auto) 6.5 % (0.0-7.3); Platelet Count 245 K/mm3 (140-440); Red Blood Count 4.78 M/mm3 (3.65-5.03)
[2021-08-12 13:08] LABS: Alanine Aminotransferase 27 units/L (7-56); BUN/Creatinine Ratio 22; Blood Urea Nitrogen 20 mg/dL (9-20); Calcium 8.9 mg/dL (8.4-10.2); Hemolysis Index 7
--- NOTE | 2021-08-12 13:14 | Vascular Lab Report ---
DUPLEX DOPPLER LOWER EXTREMITY VEINS, LEFT INDICATION / CLINICAL INFORMATION: r/o dvt. Lymphedema TECHNIQUE: Duplex doppler imaging was performed through the veins of the left lower extremity using venous compr ession and other maneuvers. COMPARISON: None available. FINDINGS: LEFT COMMON FEMORAL VEIN: Negative. LEFT FEMORAL VEIN: Negative. LEFT POPLITEAL VEIN: Negative. LEFT CALF VEINS: Negative. ADDITIONAL FINDINGS: None. IMPRESSION: 1. No sonographic evidence for DVT in the left lower extremity. Signer Name: Sam Choi MD Signed: 08/12/2021 1:09 PM Workstation Name: [id number]
[2021-08-12] MEDS ORDERED: cefTRIAXone/NS 1 GM/50 ML 1 GM/50 ML BAG IV ONE (13:39)
--- NOTE | 2021-08-12 14:37 | Emergency Department Report ---
ED Extremity Problem HPI - General Chief complaint: Extremity Injury, Lower Stated complaint: 50-year-old male presents to the emergency department complaining of left lower extremity swelling and pain and low back pain. The patient has a long history of chronic lymphedema and gets recurrent cellulitis in his left lower extremity. He also has a history of DVTs and takes Eliquis. He states that he started having pain for 5 days ago, consistent with his cellulitis. He did have some leftover antibiotics at home and started taking them. He states that the swelling is a little bit better and he has not had any fevers. He also has a long history of degenerative disc disease in his lumbar region and has been having a lot of back pain. He denies any nausea or vomiting, dysuria, hematuria, abdominal pain, chest pain, palpitations, or shortness of air. Time Seen by Provider: 08/12/21 11:58 Source: patient Mode of arrival: Ambulatory Limitations: No Limitations - History of Present Illness MD Complaint: extremity pain, extremity swelling -: Gradual Location: left, lower extremity History of Same: Yes -: Yes arthralgia Radiation: none Severity scale (0 -10): 8 Quality: aching, constant Consistency: constant Improves with: nothing Worsens with: weight bearing, walking, exertion - Related Data Home Medications Medication Instructions Recorded Confirmed Last Taken Esomeprazole Magnesium [NexIUM] 40 mg PO QDAY 03/24/19 03/24/19 Unknown cephALEXin [Keflex] 500 mg PO Q12HR 03/24/19 03/24/19 Unknown Previous Rx's Medication Instructions Recorded Last Taken Type Enoxaparin 120 mg SUB-Q Q12HR #14 syringe 02/08/19 Unknown Rx oxyCODONE /ACETAMINOPHEN [Percocet 1 tab PO Q6HR PRN #24 tablet 03/24/19 Unknown Rx 5/325 mg] Doxycycline Monohydrate 100 mg PO BID #20 tablet 08/12/21 Unknown Rx Lidocaine [Lidoderm] 1 each TP BID #1 box 08/12/21 Unknown Rx methOCARBAMOL [Robaxin TAB] 500 mg PO Q6H PRN #20 tablet 08/12/21 Unknown Rx Allergies Allergy/AdvReac Type Severity Reaction Status Date / Time heparin AdvReac Unknown Verified 12/25/18 10:38 Latex, Natural Rubber AdvReac Hives Verified 12/25/18 10:38 Penicillins AdvReac Hives Verified 12/25/18 10:38 Sulfa (Sulfonamide AdvReac Hives Verified 12/25/18 10:38 Antibiotics) coumadin AdvReac Bleeding Uncoded 12/25/18 10:38 ED Review of Systems ROS: Stated complaint: Wound/back pain Other details as noted in HPI Cardiovascular: edema Musculoskeletal: back pain, joint swelling, arthralgia ED Past Medical Hx - Past Medical History Hx Hypertension: Yes Hx Congestive Heart Failure: No Hx Diabetes: No Hx Deep Vein Thrombosis: Yes (Bilateral legs) Hx Pulmonary Embolism: Yes Hx Seizures: Yes (x 1 Not on meds) Hx Asthma: Yes Hx COPD: No Hx Tuberculosis: Yes (Treated x 9 months) Hx HIV: No Additional medical history: DVT/PE hx, chronic lymphodema - Surgical History Additional Surgical History: IVC filter - Social History Smoking Status: Current Every Day Smoker Substance Use Type: Alcohol, Marijuana - Medications Home Medications: Home Medications Medication Instructions Recorded Confirmed Last Taken Type Enoxaparin 120 mg SUB-Q Q12HR #14 syringe 02/08/19 03/24/19 Unknown Rx Esomeprazole Magnesium [NexIUM] 40 mg PO QDAY 03/24/19 03/24/19 Unknown History cephALEXin [Keflex] 500 mg PO Q12HR 03/24/19 03/24/19 Unknown History oxyCODONE /ACETAMINOPHEN [Percocet 1 tab PO Q6HR PRN #24 tablet 03/24/19 Unknown Rx 5/325 mg] Doxycycline Monohydrate 100 mg PO BID #20 tablet 08/12/21 Unknown Rx Lidocaine [Lidoderm] 1 each TP BID #1 box 08/12/21 Unknown Rx methOCARBAMOL [Robaxin TAB] 500 mg PO Q6H PRN #20 tablet 08/12/21 Unknown Rx ED Physical Exam - General Limitations: No Limitations - Extremities Exam Extremities exam: Present: tenderness, joint swelling (Significant lymphedema bilateral lower extremities, left greater than right) ED Course Vital Signs 08/12/21 08/12/21 11:43 13:33 Temperature 98.9 F Pulse Rate 78 Respiratory 18 16 Rate Blood Pressure 130/73 O2 Sat by Pulse 97 Oximetry ED Medical Decision Making - Lab Data Result diagrams: 08/12/21 12:38 08/12/21 12:38 Critical care attestation.: If time is entered above; I have spent that time in minutes in the direct care of this critically ill patient, excluding procedure time. ED Disposition Clinical Impression: Chronic acquired lymphedema, Cellulitis of left lower extremity, Chronic low back pain, Anticoagulated Disposition: 30 STILL A PATIENT Is pt being admited?: No Does the pt Need Aspirin: No Condition: Stable Instructions: Cellulitis, Adult, Lymphedema, Chronic Back Pain Additional Instructions: Keep your left leg elevated. Take your medications as prescribed. Follow-up as directed. Prescriptions: Doxycycline Monohydrate 100 mg PO BID #20 tablet Lidocaine [Lidoderm] 1 each TP BID #1 box methOCARBAMOL [Robaxin TAB] 500 mg PO Q6H PRN #20 tablet PRN Reason: Spasms Referrals: PRIMARY CARE, [Primary Care Provider] - 3-[address] [facility] [Provider Group] - 3-5 Days
[2021-08-12 16:05] VITALS: BP 141/84
== END 2021-08-12 16:05 | disposition still patient (30) ==
LOC: ED 11:36
DX: I89.0 Lymphedema, not elsewhere classified (principal); L03.116 Cellulitis of left lower limb; M54.50 Low back pain, unspecified; F17.200 Nicotine dependence, unspecified, uncomplicated; F12.90 Cannabis use, unspecified, uncomplicated; F10.20 Alcohol dependence, uncomplicated; I10 Essential (primary) hypertension; J45.909 Unspecified asthma, uncomplicated; Z88.8 Allergy status to other drugs, medicaments and biological substances; Z91.040 Latex allergy status; Z88.0 Allergy status to penicillin; Z88.2 Allergy status to sulfonamides; Z88.3 Allergy status to other anti-infective agents
CPT/HCPCS: 36415; 80053; 82140; 85025; 87040; 93971; 96365; 96375; 99284; J0696; J2405; J3010